=== PATIENT | female | born 1945 | race Caucasian/White ===

== ENCOUNTER → 2018-08-01 12:58 | Outpatient (CLI) | payer MEDICARE, OTHER, SELFPAY ==
[2018-08-03 18:28] LABS: Fecal Immunochemical Test NOT DETECTED
== END ==
PROVIDERS: PCP Physician Assistant; Visit Provider Physician Assistant
DX: Z12.11 Encounter for screening for malignant neoplasm of colon (principal)
CPT/HCPCS: 82274

== ENCOUNTER → 2021-05-17 08:06 | Outpatient (CLI) | payer MEDICARE, OTHER, SELFPAY ==
[2021-05-17 12:54] LABS: COVID19 -Nasal RAPID Negative (Negative)
== END ==
PROVIDERS: Family Provider Physician Assistant; PCP Physician Assistant; Visit Provider Nurse Practitioner Family
DX: Z01.812 Encounter for preprocedural laboratory examination (principal); Z20.822 Contact with and (suspected) exposure to COVID-19
CPT/HCPCS: 87635; C9803

== ENCOUNTER 2021-05-18 09:18 | Day surgery (SDC) | payer MEDICARE, OTHER, SELFPAY ==
[2021-05-18] MEDS: CATARACT EYE COMPOUND (10 DROPS/SYRINGE) 3 DROPS EYE-OP (10:22)
[2021-05-18] MEDS: PROPARACAINE 0.5% OPHTH SOL 2 DROPS EYE-OP (10:23)
[2021-05-18 10:25] VITALS: BP 173/88; PULSE 62; RESP 20; TEMP 36.4; O2SAT 99; BMI 28.3
--- NOTE | 2021-05-18 11:34 | PM.PREOP ---
Pre-operative Note Interval Note History & Physical reviewed/Exam performed by Physician: Yes Changes to H&P: No
--- NOTE | 2021-05-18 11:34 | PM.OP.1 ---
Operative Date/Time/Diagnoses Pre-op diagnosis: Nuclear Cataract Left eye Post-op diagnosis: same Procedure & Clinicians Same procedure as scheduled: Yes Surgeon: Sergo Nascimento Anesthesia Type: MAC +/- and Sedation Operative Notes Procedure in detail: Patient brought to the operating suite. Tetracaine drops placed in the left eye. Patient was prepped and draped in sterile manner. Wire lid speculum was placed in the eye. Betadine drops were placed on the eye. This was irrigated. Lidocaine jelly was placed on the eye. A paracentesis port was created with a side-port blade. 0.1 mL 1% preservative free lidocaine was injected into the anterior chamber. The anterior chamber was deepened with viscoelastic. 2.6 mm keratome was used to create a temporal clear corneal incision. Cystotome and Utrata forceps were used to create continuous tear capsulorrhexis. Balanced salt solution was used to hydro dissect the nucleus. The phacoemulsification handpiece was inserted and the nucleus was removed using the stop and chop technique. The irrigation aspiration handpiece was inserted and the remaining cortex was removed. Anterior chamber was deepened with viscoelastic. An Roche DIB00 intraocular lens with a power of 23.0 was injected into the capsular bag. Irrigation aspiration handpiece was inserted and the remaining viscoelastic was removed. Incision was hydrated with balanced salt solution and found to be leak free with pressure with Weck-Melody sponges. 0.1 mL Vigamox injected anterior chamber. 0.3 mL Kenalog 10 mg was injected subconjunctivally. Lid speculum was removed. The patient left the operating room in excellent condition. Complications: none Post-operative Condition: stable Disposition: same day surgery
[2021-05-18] MEDS: MOXIFLOXACIN INJ 4 MG/0.8 ML VIAL 0.5 MG EYE-OP (11:55)
[2021-05-18] MEDS: LIDOCAINE 2% (GLYDO) 6 ML GEL TOP (11:55)
[2021-05-18] MEDS: HYALURONATE SODIUM 30 MG-10 MG/ML SYRINGES 1 BOX INTRAOCULA (11:55)
[2021-05-18] MEDS: PHENYLEPHRINE/LIDOCAINE VIAL (OR) 0.2 ML EYE-OP (11:55)
[2021-05-18] MEDS: TRIAMCINOLONE 50 MG/5 ML VIAL INJ (11:56)
[2021-05-18] MEDS: BALANCED SALT IRRIG SOLN NO.2 500 ML, EPINEPHrine 1 MG IRR (11:56)
[2021-05-18] MEDS: TETRACAINE 0.5% OPHTH DROPS 4 ML 2 DROPS EYE-OP (11:56)
[2021-05-18 12:34] VITALS: BP 159/80; PULSE 59; RESP 16; TEMP 36.6; O2SAT 96
== END 2021-05-18 12:30 | disposition home or self-care (01) ==
PROVIDERS: Family Provider Physician Assistant; PCP Internal Medicine; Referring Provider Ophthalmology; Visit Provider Ophthalmology
PROC: (CPT 66984; principal; 2021-05-18 11:15)
DX: H25.12 Age-related nuclear cataract, left eye (principal); I10 Essential (primary) hypertension
CPT/HCPCS: 66984; J0171; J2250; J3301

== ENCOUNTER → 2021-05-31 10:42 | Outpatient (CLI) | payer MEDICARE, OTHER, SELFPAY ==
[2021-05-31 14:35] LABS: COVID19 -Nasal RAPID Negative (Negative)
== END ==
PROVIDERS: Family Provider Physician Assistant; PCP Internal Medicine; Referring Provider Nurse Practitioner Family; Visit Provider Nurse Practitioner Family
DX: Z20.822 Contact with and (suspected) exposure to COVID-19 (principal); Z01.812 Encounter for preprocedural laboratory examination
CPT/HCPCS: 87635; C9803

== ENCOUNTER 2021-06-01 10:14 | Day surgery (SDC) | payer MEDICARE, OTHER, SELFPAY ==
[2021-06-01 11:02] VITALS: BP 165/79; PULSE 56; RESP 16; TEMP 36.7; O2SAT 98; BMI 28.1
[2021-06-01] MEDS: CATARACT EYE COMPOUND (10 DROPS/SYRINGE) 3 DROPS EYE-OP (11:08)
[2021-06-01] MEDS: PROPARACAINE 0.5% OPHTH SOL 2 DROPS EYE-OP (11:08)
--- NOTE | 2021-06-01 11:56 | PM.PREOP ---
Pre-operative Note Interval Note History & Physical reviewed/Exam performed by Physician: Yes Changes to H&P: No
--- NOTE | 2021-06-01 11:56 | PM.OP.1 ---
Operative Date/Time/Diagnoses Pre-op diagnosis: Nuclear cataract right eye Procedure & Clinicians Procedure: Cataract Surgery Same procedure as scheduled: Yes Surgeon: Sergo Nascimento Anesthesia Type: MAC +/- and Sedation Operative Notes Procedure in detail: Patient brought to the operating suite. Tetracaine drops placed in the right eye. Patient was prepped and draped in sterile manner. Wire lid speculum was placed in the eye. Betadine drops were placed on the eye. This was irrigated. Lidocaine jelly was placed on the eye. A paracentesis port was created with a side-port blade. 0.1 mL 1% preservative free lidocaine was injected into the anterior chamber. The anterior chamber was deepened with viscoelastic. 2.6 mm keratome was used to create a temporal clear corneal incision. Cystotome and Utrata forceps were used to create continuous tear capsulorrhexis. Balanced salt solution was used to hydro dissect the nucleus. The phacoemulsification handpiece was inserted and the nucleus was removed using the stop and chop technique. The irrigation aspiration handpiece was inserted and the remaining cortex was removed. Anterior chamber was deepened with viscoelastic. An Roche DIB00 intraocular lens with a power of 23.5 was injected into the capsular bag. Irrigation aspiration handpiece was inserted and the remaining viscoelastic was removed. Incision was hydrated with balanced salt solution and found to be leak free with pressure with Weck-Melody sponges. 0.1 mL Vigamox injected anterior chamber. 0.3 mL Kenalog 10 mg was injected subconjunctivally. Lid speculum was removed. The patient left the operating room in excellent condition. Complications: none Post-operative Condition: stable Disposition: same day surgery
[2021-06-01] MEDS: LIDOCAINE 2% (GLYDO) 6 ML GEL TOP (12:14)
[2021-06-01] MEDS: HYALURONATE SODIUM 30 MG-10 MG/ML SYRINGES 1 BOX INTRAOCULA (12:14)
[2021-06-01] MEDS: MOXIFLOXACIN INJ 4 MG/0.8 ML VIAL 0.5 MG EYE-OP (12:14)
[2021-06-01] MEDS: TETRACAINE 0.5% OPHTH DROPS 4 ML 2 DROPS EYE-OP (12:15)
[2021-06-01] MEDS: PHENYLEPHRINE/LIDOCAINE VIAL (OR) 0.2 ML EYE-OP (12:15)
[2021-06-01] MEDS: TRIAMCINOLONE 50 MG/5 ML VIAL INJ (12:15)
[2021-06-01] MEDS: BALANCED SALT IRRIG SOLN NO.2 500 ML, EPINEPHrine 1 MG IRR (12:16)
[2021-06-01 12:36] VITALS: BP 159/83; PULSE 70; RESP 16; TEMP 36.1; O2SAT 94
== END 2021-06-01 12:39 | disposition home or self-care (01) ==
PROVIDERS: Family Provider Physician Assistant; PCP Internal Medicine; Referring Provider Ophthalmology; Visit Provider Ophthalmology
PROC: (CPT 66984; principal; 2021-06-01 12:15)
DX: H25.11 Age-related nuclear cataract, right eye (principal); I10 Essential (primary) hypertension
CPT/HCPCS: 66984; J0171; J2250; J3301

== ENCOUNTER → 2022-01-07 15:30 | Outpatient (CLI) | payer MEDICARE, OTHER, SELFPAY ==
--- NOTE | 2022-01-07 15:35 | DI.RAD.S_ITS ---
PROCEDURE: XR CHEST 2V INDICATIONS: Cough 2 mo. SOB TECHNIQUE: 2 views of the chest were acquired. COMPARISON: [facility], , CHEST 2 VIEW, 10/20/2017, 19:31. FINDINGS: Surgical changes and devices: None. Lungs and pleura: New diffuse interstitial prominence and scattered patchy airspace opacities in the bilateral hemithoraces which appear more pronounced on the right. No substantial pleural effusion noted. No pneumothorax. Mediastinum: Mediastinal contours are normal. Heart size is normal. Bones and chest wall: No suspicious bony abnormalities. Soft tissues appear unremarkable. IMPRESSION: Diffuse interstitial prominence and scattered patchy bilateral airspace opacities more pronounced on the right. Findings may represent multifocal pneumonia; however, an infectious process may have a similar appearance. Given duration of symptoms, consider further evaluation with chest CT. Dictated by: Bernardino Leahy M.D. on 01/07/2022 at 17:14 Approved by: Bernardino Leahy M.D. on 01/07/2022 at 17:16
== END ==
PROVIDERS: Family Provider Physician Assistant; PCP Student in an Organized Health Care Education/Training Program; Referring Provider Student in an Organized Health Care Education/Training Program; Visit Provider Student in an Organized Health Care Education/Training Program
DX: R05.9 Cough, unspecified (principal); R06.02 Shortness of breath
CPT/HCPCS: 71046

== ENCOUNTER 2022-01-19 14:38 | Inpatient (IN) | payer MEDICARE, OTHER, SELFPAY ==
[2022-01-19] VITALS (18 sets, daily range): BP systolic 165–187; BP diastolic 86–111; PULSE 75–96; RESP 20–48; TEMP 36.9–37.1; O2SAT 91–98; BMI 29.2
--- NOTE | 2022-01-19 14:51 | DI.RAD.S_ITS ---
PROCEDURE: XR CHEST 1V INDICATIONS: recent pneumonia, worsening symptoms TECHNIQUE: One view of the chest was acquired. COMPARISON: [facility], , XR CHEST 2V, 01/07/2022, 15:28. [facility], , CHEST 2 VIEW, 10/20/2017, 19:31. FINDINGS: Surgical changes and devices: None. Lungs and pleura: Bilateral patchy airspace opacity. Overall this is similar to the prior exam. No pleural effusions or pneumothorax. Mediastinum: Mediastinal contours appear unchanged. Heart size is within normal limits. Bones and chest wall: No suspicious bony lesions. Overlying soft tissues appear unremarkable. IMPRESSION: Bilateral patchy airspace opacity. Overall this is similar to the prior exam. Favor multifocal pneumonia. Recommend follow-up to resolution. CT of the chest may be helpful for further evaluation. Dictated by: Pipe Zapata M.D. on 01/19/2022 at 15:41 Approved by: Pipe Zapata M.D. on 01/19/2022 at 15:43
--- NOTE | 2022-01-19 15:08 | PC.NURSE ---
Pt reports recent diagnosis of pneumonia and feeling SOB. 93% on RA, RR 32. Pt reports sleeping 23/7. She states eating 2 crackers and 1 glass of water daily.
--- NOTE | 2022-01-19 15:32 | DI.RAD.S_ITS ---
PROCEDURE: XR CHEST 1V INDICATIONS: additional view, pneumonia TECHNIQUE: One view of the chest was acquired. COMPARISON: [facility], CR, XR CHEST 1V, 01/19/2022, 14:56. FINDINGS: Motion is present limiting evaluation. Surgical changes and devices: None. Lungs and pleura: Ill-defined areas of retrocardiac opacity are noted. Mediastinum: Mediastinal contours appear normal. Heart size is normal. Bones and chest wall: No suspicious bony lesions. Overlying soft tissues appear unremarkable. IMPRESSION: Ill-defined retrocardiac opacity likely corresponding to areas of bibasilar coarsening identified on chest x-ray of 01/19/2022 at 2:56 p.m. Dictated by: Nataly Stokes M.D. on 01/19/2022 at 16:04 Approved by: Nataly Stokes M.D. on 01/19/2022 at 16:05
[2022-01-19 15:44] LABS: Add Manual Diff / Slide Review NO; Basophils Absolute Auto 100 /uL (0-100); Basophils Percent Auto 0.5 % (0-2); Eosinophils Absolute Auto 300 /uL (0-450); Eosinophils Percent Auto 2.8 % (2-4); Hematocrit 34.8 % (36-46); Hemoglobin 12.1 g/dL (12.0-16.0); Lymphocytes Absolute Auto 1400 /uL (1100-4500); Mean Corpuscular HGB Conc 34.8 % (30-36); Mean Corpuscular Hemoglobin 32.5 PG (26-34); Mean Corpuscular Volume 93.5 fL (80-100); Monocytes Absolute Auto 800 /uL (0-900); Monocytes Percent Auto 6.6 % (3-14); Neutrophils Absolute Auto 9200 /uL (1500-7000); Neutrophils Percent Auto 78.1 % (50-75); Platelet Count 448 X10^3/uL (150-400); Red Blood Cell Count 3.72 X10^6/uL (4.0-5.2); Red Cell Distribution Width 12.4 % (11.6-14.8); White Blood Cell Count 11.8 X10^3/uL (4.5-11.0)
[2022-01-19 15:51] LABS: Alanine Aminotransferase 25 IU/L (<35); Albumin 3.7 g/dL (3.5-5.0); Albumin Globulin Ratio 0.9 (1.0-2.8); Alkaline Phosphatase 105 U/L (38-126); Aspartate Aminotransferase 28 IU/L (14-36); BUN Creatinine Ratio 16.3 (6-22); Bilirubin Total 0.6 mg/dL (0.2-1.3); Blood Urea Nitrogen 13 mg/dL (7-17); Calcium 9.1 mg/dL (8.4-10.2); Carbon Dioxide 30 mmol/L (22-32); Chloride 92 mmol/L (98-107); Estimated Glomerular Filt Rate > 60 mL/min (>60); Globulin 4.2 g/dL (1.7-4.1); Glucose 102 mg/dL (80-110); HEMOLYSIS < 15 (0-50); Magnesium 1.9 mg/dL (1.6-2.3); Potassium 3.3 mmol/L (3.4-5.1); Sodium 134 mmol/L (137-145); Total Protein 7.9 g/dL (6.3-8.2)
[2022-01-19 15:59] LABS: NT-proBNP (BNP-Adult 18+) 174 pg/mL (<450)
[2022-01-19] MEDS: ALBUTEROL/IPRATROPIUM 3 ML AMPUL INH (16:03)
[2022-01-19 16:08] LABS: COVID19 -Nasal RAPID Negative (Negative)
[2022-01-19 16:09] LABS: Creatine Kinase 48 U/L (30-135)
[2022-01-19 16:23] LABS: Troponin I < 0.012 ng/mL (0.01-0.034)
[2022-01-19] MEDS: DOXYCYCLINE HYCLATE 100 MG TABLET PO (17:33)
[2022-01-19] MEDS: AMOXICILLIN/CLAV 875/125 MG 1 TAB PO (17:33)
--- NOTE | 2022-01-19 17:47 | PC.NURSE ---
Per ARTHUR Li ambulation trial was performed. Pt 3 saturation went from 94% on 1L of oxygen to 88% on room air while walking within the room. Patient reported being a little bit dizzy. She was assisted back to bed. Oxygen placed back on via nasal cannula at 1.5 L. Current saturation is 93%. Call light within reach. Informed to call for any needs. Notified ARTHUR Li of ambulation trial results.
[2022-01-19] MEDS: cefTRIAXone 1,000 MG in SODIUM CHLORIDE 0.9% 100 ML 200 MG IV (18:32)
--- NOTE | 2022-01-19 18:55 | PC.NURSE ---
Pt given snack and water with ok from ARTHUR Abbott
[2022-01-19] MEDS: AZITHROMYCIN 500 MG in DEXTROSE 5% IN WATER 250 ML 250 MG IV (20:08)
--- NOTE | 2022-01-19 20:08 | ED_ITS ---
HPI - SOB/Dyspnea <Jen Abbott PA-C - Last Filed: 01/19/22 20:33> General Chief Complaint: Upper Respiratory Symptoms Stated Complaint: pneumonia 2 weeks ago, still feeling bad Time Seen by Provider: 01/19/22 14:44 Source: patient Mode of arrival: Ambulatory Limitations: no limitations History of Present Illness HPI Narrative: Patient is a 76-year-old female presenting with ongoing pneumonia symptoms for the last 3 weeks. She was originally seen by her primary provider and just completed a 5 day course of doxycycline. She reports persistent shortness of breath, shallow breathing, cough, dizziness with ambulation, fatigue. She denies any fever, chest pain, pain with inspiration, confusion, nasal drainage, nasal congestion, nausea, vomiting, or dysuria. She denies any past medical history of asthma. She reports that she has had pneumonia many times in the past and does well on amoxicillin. She has had very little appetite and has only eaten 1 cracker and drank half a glass of water today. She does not use supplemental oxygen at home. Related Data Home Medications Medication Instructions Recorded Confirmed aspirin 81 mg tablet,delayed 81 mg PO QDAY #0 10/31/17 01/19/22 release Carditone 200 mg PO DAILY 01/20/22 01/20/22 Previous Rx's Medication Instructions Recorded varicella-zoster glycoE [id number] 50 mcg IM ONCE #1 each 02/05/19 adj(PF) 50 mcg/0.5 mL IM susp, kit (Shingrix (PF)) doxepin 10 mg capsule 10 mg PO HSP PRN #30 cap 09/23/19 Allergies Allergy/AdvReac Type Severity Reaction Status Date / Time shellfish derived Allergy Severe I SWELL Verified 01/19/22 15:14 UP ibuprofen [From MOTRIN] AdvReac Severe MAKED ME Verified 08/11/21 13:23 GO BLIND AND INCREASED MY BLOOD PRESSURE pseudoephedrine AdvReac Severe REALLY Verified 08/11/21 13:23 [From SUDAFED] DRIES ME OUT THAT I CAN'T EVEN PEE Review of Systems <Jen Abbott PA-C - Last Filed: 01/19/22 20:33> Review of Systems ROS Unobtainable: All systems reviewed & are unremarkable except as noted in HPI and below Constitutional Constitutional: Reports as per HPI, Denies chills, Denies difficulty sleeping, Reports fatigue, Denies fever(s), Denies headache(s), Reports poor appetite and Reports weakness Eyes Eyes: Denies change in vision, Denies irritation and Denies loss of vision ENT Ears, Nose, Mouth, and Throat: Reports dizziness, Denies headache(s), Denies nasal congestion, Denies nasal discharge and Denies sore throat Cardiovascular Cardiovascular: Denies chest pain, Denies irregular heart rhythm, Denies lightheadedness, Denies palpitations, Denies dyspnea, Denies dyspnea on exertion and Denies orthopnea Respiratory Respiratory: Denies cough, Denies dyspnea and Denies dyspnea on exertion Gastrointestinal Gastrointestinal: Denies abdominal pain, Denies change in bowel habits, Denies diarrhea, Denies nausea and Denies vomiting Genitourinary Genitourinary: Denies dysuria, Denies flank pain, Denies urinary incontinence and Denies urinary urgency Musculoskeletal Musculoskeletal: Denies muscle weakness, Denies numbness and Denies tingling Integumentary/Breasts Skin/Breast: Denies pruritus, Denies erythema, Denies rash and Denies wounds Neurologic Neurologic: Denies behavioral changes, Denies confusion, Reports dizziness, Denies headache(s), Denies loss of vision, Denies numbness, Denies tingling and Reports weakness Psychiatric Psychiatric: Denies abnormal sleep pattern, Denies behavioral changes, Reports change in appetite and Denies confusion Endocrine Endocrine: Reports fatigue, Denies flushing and Denies palpitations Hematologic/Lymphatic Hematologic/Lymphatic: Reports system reviewed and no additional complaints, except as documented Allergic/Immunologic Allergic/Immunologic: Reports system reviewed and no additional complaints, except as documented Patient History <Jen Abbott PA-C - Last Filed: 01/19/22 20:33> Medical History Hypertension Surgical History History of carpal tunnel repair Social History household members: none Smoking Status: Never smoker second hand exposure: No (I was exposed with I was younger, but not since I was 36.) alcohol intake: never substance use type: does not use Smoking Status: Never smoker Substance Use Type: does not use Exam <Jen Abbott PA-C - Last Filed: 01/19/22 20:33> Narrative Exam Narrative: GENERAL: 76 year old patient appears stated age. Well-developed patient, in mild distress. HEAD: Atraumatic. Normocephalic. EYES: Pupils equal round and reactive. Extraocular motions intact. No scleral icterus. No injection or drainage. ENT: Nose without bleeding, purulent drainage. Throat without erythema, tonsi llar hypertrophy or exudate. Airway patent. NECK: Trachea midline. Non tender CARDIOVASCULAR: Regular rate and rhythm without murmurs, gallops, or rubs. RESPIRATORY: Shallow breathing, tachypnea, bilateral crackles present GASTROINTESTINAL: Abdomen soft, non-tender, nondistended. EXTREMITIES: No edema or joint tenderness. BACK: Nontender without deformity or crepitance. No flank tenderness. NEURO: AOx3. SKIN: No rash or erythema of visible areas Initial Vital Signs Initial Vital Signs: Vital Signs Temperature 98.4 F 01/19/22 14:46 Pulse Rate 89 01/19/22 14:46 Respiratory Rate 24 01/19/22 14:46 Blood Pressure 173/86 H 01/19/22 14:46 Pulse Oximetry 94 01/19/22 14:46 <César Hayward MD - Last Filed: 01/20/22 03:16> Initial Vital Signs Initial Vital Signs: Vital Signs Temperature 98.4 F 01/19/22 14:46 Pulse Rate 89 01/19/22 14:46 Respiratory Rate 24 01/19/22 14:46 Blood Pressure 173/86 H 01/19/22 14:46 Pulse Oximetry 94 01/19/22 14:46 Scores <Jen Abbott PA-C - Last Filed: 01/19/22 20:33> CURB-65 Confusion: No BUN >19mg/dL (>7mmol/L): No Respiratory rate greater or equal to 30: Yes SBP <90mmHg or DBP less or equal to 60mmHg: No Age 65 or Older: Yes CURB-65 Total: 2 Score 0-1 Outpatient care, Score 2 Inpt vs. Obs, Score 3 or over Inpt admit with ICU for score of 4-5 <César Hayward MD - Last Filed: 01/20/22 03:16> CURB-65 CURB-65 Total: 2 Course <Jen Abbott PA-C - Last Filed: 01/19/22 20:33> Orders Ordered: Acetaminophen (Acetaminophen 325 Mg Tablet) 650 mg PO Q6HR PRN PRN Reason: pain, fever Albuterol (Albuterol 2.5 Mg/3 Ml Neb (Adult)) 2.5 mg INH [id number] PRN PRN Reason: Shortness Of Breath Enoxaparin Sodium (Enoxaparin 40 Mg/0.4 Ml Syringe) 40 mg SUBCUT DAILY RYANNE Ceftriaxone Sodium 1,000 mg/ (Sodium Chloride) 100 mls @ 200 mls/hr IV Q24H RYANNE Azithromycin 500 mg/ Dextrose 250 mls @ 250 mls/hr IV Q24H RYANNE Naloxone HCl (Naloxone 0.4 Mg/Ml Vial) 0.2 mg IV Q2MIN PRN PRN Reason: Opiate Reversal Ondansetron HCl (Ondansetron 4 Mg/2 Ml Inj) 4 mg IV Q8HR PRN PRN Reason: Nausea And Vomiting Discontinued Medications Albuterol (Albuterol 2.5 Mg/3 Ml Neb (Adult)) 2.5 mg INH NOW ONE Stop: 01/19/22 16:53 Last Admin: 01/19/22 17:58 Dose: Not Given Documented by: ERICA Albuterol/Ipratropium (Albuterol/Ipratropium 3 Ml Ampul) 3 ml INH NOW ONE Stop: 01/19/22 15:33 Last Admin: 01/19/22 16:03 Dose: 3 ml Documented by: KEITH Amoxicillin/Clavulanate Potassium (Amoxicillin/Clav 875/125 Mg) 1 tab PO NOW ONE Stop: 01/19/22 16:57 Last Admin: 01/19/22 17:33 Dose: 1 tab Documented by: ANTONIO Doxycycline Hyclate (Doxycycline Hyclate 100 Mg Tablet) 100 mg PO NOW ONE Stop: 01/19/22 16:57 Last Admin: 01/19/22 17:33 Dose: 100 mg Documented by: ANTONIO Ceftriaxone Sodium 1,000 mg/ (Sodium Chloride) 100 mls @ 200 mls/hr IV NOW ONE Stop: 01/19/22 18:18 Last Infusion: 01/19/22 20:16 Dose: 0 mls/hr Documented by: Admin: 01/19/22 18:32 Dose: 200 mls/hr Documented by: TAD Azithromycin 500 mg/ Dextrose 250 mls @ 250 mls/hr IV NOW ONE Stop: 01/19/22 18:18 Last Infusion: 01/19/22 20:51 Dose: 250 mls/hr Documented by: Infusion: 01/19/22 20:43 Dose: 250 mls/hr Documented by: Infusion: 01/19/22 20:21 Dose: 0 mls/hr Documented by: Admin: 01/19/22 20:08 Dose: 250 mls/hr Documented by: ANTONIO Prednisone (Prednisone 20 Mg Tablet) 50 mg PO NOW ONE Stop: 01/19/22 16:54 Last Admin: 01/19/22 17:59 Dose: Not Given Documented by: ERICA Vital Signs Vital signs: Vital Signs - 8 hr 01/19/22 14:46 01/19/22 15:00 01/19/22 15:14 Temperature 98.4 F Pulse Rate 86 85 81 Respiratory Rate 24 Blood Pressure 173/86 H 171/90 H Pulse Oximetry 93 93 94 01/19/22 15:15 01/19/22 15:26 01/19/22 15:30 Temperature Pulse Rate 82 Respiratory Rate 22 33 H Blood Pressure Pulse Oximetry 91 94 94 01/19/22 16:00 01/19/22 16:30 01/19/22 17:00 Temperature Pulse Rate 75 85 85 Respiratory Rate 31 H 32 H 26 H Blood Pressure Pulse Oximetry 91 94 94 01/19/22 17:30 01/19/22 17:33 01/19/22 18:00 Temperature Pulse Rate 88 90 94 H Respiratory Rate 27 H 27 H 48 H Blood Pressure 174/94 H Pulse Oximetry 95 94 93 01/19/22 18:26 Temperature Pulse Rate 85 Respiratory Rate 28 H Blood Pressure 187/111 H Pulse Oximetry 97 <César Hayward MD - Last Filed: 01/20/22 03:16> Orders Ordered: Acetaminophen (Acetaminophen 325 Mg Tablet) 650 mg PO Q6HR PRN PRN Reason: pain, fever Albuterol (Albuterol 2.5 Mg/3 Ml Neb (Adult)) 2.[id number] PRN PRN Reason: Shortness Of Breath Enoxaparin Sodium (Enoxaparin 40 Mg/0.4 Ml Syringe) 40 mg SUBCUT DAILY [facility] Ceftriaxone Sodium 1,000 mg/ (Sodium Chloride) 100 mls @ 200 mls/hr IV Q24H RYANNE Azithromycin 500 mg/ Dextrose 250 mls @ 250 mls/hr IV Q24H RYANNE Naloxone HCl (Naloxone 0.4 Mg/Ml Vial) 0.2 mg IV Q2MIN PRN PRN Reason: Opiate Reversal Ondansetron HCl (Ondansetron 4 Mg/2 Ml Inj) 4 mg IV Q8HR PRN PRN Reason: Nausea And Vomiting Discontinued Medications Albuterol (Albuterol 2.5 Mg/3 Ml Neb (Adult)) 2.5 mg INH NOW ONE Stop: 01/19/22 16:53 Last Admin: 01/19/22 17:58 Dose: Not Given Documented by: ERICA Albuterol/Ipratropium (Albuterol/Ipratropium 3 Ml Ampul) 3 ml INH NOW ONE Stop: 01/19/22 15:33 Last Admin: 01/19/22 16:03 Dose: 3 ml Documented by: KEITH Amoxicillin/Clavulanate Potassium (Amoxicillin/Clav 875/125 Mg) 1 tab PO NOW ONE Stop: 01/19/22 16:57 Last Admin: 01/19/22 17:33 Dose: 1 tab Documented by: ANTONIO Doxycycline Hyclate (Doxycycline Hyclate 100 Mg Tablet) 100 mg PO NOW ONE Stop: 01/19/22 16:57 Last Admin: 01/19/22 17:33 Dose: 100 mg Documented by: ANTONIO Ceftriaxone Sodium 1,000 mg/ (Sodium Chloride) 100 mls @ 200 mls/hr IV NOW ONE Stop: 01/19/22 18:18 Last Infusion: 01/19/22 20:16 Dose: 0 mls/hr Documented by: Admin: 01/19/22 18:32 Dose: 200 mls/hr Documented by: TAD Azithromycin 500 mg/ Dextrose 250 mls @ 250 mls/hr IV NOW ONE Stop: 01/19/22 18:18 Last Infusion: 01/19/22 20:51 Dose: 250 mls/hr Documented by: Infusion: 01/19/22 20:43 Dose: 250 mls/hr Documented by: Infusion: 01/19/22 20:21 Dose: 0 mls/hr Documented by: Admin: 01/19/22 20:08 Dose: 250 mls/hr Documented by: ANTONIO Prednisone (Prednisone 20 Mg Tablet) 50 mg PO NOW ONE Stop: 01/19/22 16:54 Last Admin: 01/19/22 17:59 Dose: Not Given Documented by: ERICA Vital Signs Vital signs: Vital Signs - 8 hr 01/19/22 14:46 01/19/22 15:00 01/19/22 15:14 Temperature 98.4 F Pulse Rate 86 85 81 Respiratory Rate 24 Blood Pressure 173/86 H 171/90 H Pulse Oximetry 93 93 94 01/19/22 15:15 01/19/22 15:26 01/19/22 15:30 Temperature Pulse Rate 82 Respiratory Rate 22 33 H Blood Pressure Pulse Oximetry 91 94 94 01/19/22 16:00 01/19/22 16:30 01/19/22 17:00 Temperature Pulse Rate 75 85 85 Respiratory Rate 31 H 32 H 26 H Blood Pressure Pulse Oximetry 91 94 94 01/19/22 17:30 01/19/22 17:33 01/19/22 18:00 Temperature Pulse Rate 88 90 94 H Respiratory Rate 27 H 27 H 48 H Blood Pressure 174/94 H Pulse Oximetry 95 94 93 01/19/22 18:26 Temperature Pulse Rate 85 Respiratory Rate 28 H Blood Pressure 187/111 H Pulse Oximetry 97 MDM - SOB/Dyspnea <Jen Abbott PA-C - Last Filed: 01/19/22 20:33> Lab Data Result diagrams: 01/19/22 15:10 01/19/22 15:10 Labs: Lab Results 01/19/22 01/19/22 01/19/22 Range/Units 14:42 15:10 15:10 WBC 11.8 H (4.5-11.0) X10^3/uL RBC 3.72 L (4.0-5.2) X10^6/uL Hgb 12.1 (12.0-16.0) g/dL Hct 34.8 L (36-46) % MCV 93.5 (80-100) fL MCH 32.5 (26-34) PG MCHC 34.8 (30-36) % RDW 12.4 (11.6-14.8) % Plt Count 448 H (150-400) X10^3/uL Neut % (Auto) 78.1 H (50-75) % Lymph % (Auto) 12.0 L (25-40) % [place] % (Auto) 6.6 (3-14) % Eos % (Auto) 2.8 (2-4) % Baso % (Auto) 0.5 (0-2) % Neut # (Auto) 9200 H (0738-7741) /uL Lymph # (Auto) 1400 (7280-9026) /uL [place] # (Auto) 800 (0-900) /uL Eos # (Auto) 300 (0-450) /uL Baso # (Auto) 100 (0-100) /uL Sodium 134 L (137-145) mmol/L Potassium 3.3 L (3.4-5.1) mmol/L Chloride 92 L (98-107) mmol/L Carbon Dioxide 30 (22-32) mmol/L BUN 13 (7-17) mg/dL Creatinine 0.80 (0.52-1.04) mg/dL Estimated GFR > 60 (>60) mL/min BUN/Creatinine Ratio 16.3 (6-22) Glucose 102 (80-110) mg/dL Calcium 9.1 (8.4-10.2) mg/dL Magnesium 1.9 (1.6-2.3) mg/dL Total Bilirubin 0.6 (0.2-1.3) mg/dL AST 28 (14-36) IU/L ALT 25 (<35) IU/L Alkaline Phosphatase 105 (38-126) U/L Total Creatine Kinase (30-135) U/L CK-MB (CK-2) CK-MB (CK-2) Rel Index Troponin I (0.01-0.034) ng/mL NT-Pro-B Natriuret Pep 174 (<450) pg/mL Total Protein 7.9 (6.3-8.2) g/dL Albumin 3.7 (3.5-5.0) g/dL Globulin 4.2 H (1.7-4.1) g/dL Albumin/Globulin Ratio 0.9 L (1.0-2.8) Procalcitonin (<0.5) ng/mL SARS-CoV-2 (PCR) Negative (Negative) 01/19/22 01/19/22 Range/Units 15:10 15:10 WBC (4.5-11.0) X10^3/uL RBC (4.0-5.2) X10^6/uL Hgb (12.0-16.0) g/dL Hct (36-46) % MCV (80-100) fL MCH (26-34) PG MCHC (30-36) % RDW (11.6-14.8) % Plt Count (150-400) X10^3/uL Neut % (Auto) (50-75) % Lymph % (Auto) (25-40) % [place] % (Auto) (3-14) % Eos % (Auto) (2-4) % Baso % (Auto) (0-2) % Neut # (Auto) (4188-0541) /uL Lymph # (Auto) (0507-1932) /uL [place] # (Auto) (0-900) /uL Eos # (Auto) (0-450) /uL Baso # (Auto) (0-100) /uL Sodium (137-145) mmol/L Potassium (3.4-5.1) mmol/L Chloride (98-107) mmol/L Carbon Dioxide (22-32) mmol/L BUN (7-17) mg/dL Creatinine (0.52-1.04) mg/dL Estimated GFR (>60) mL/min BUN/Creatinine Ratio (6-22) Glucose (80-110) mg/dL Calcium (8.4-10.2) mg/dL Magnesium (1.6-2.3) mg/dL Total Bilirubin (0.2-1.3) mg/dL AST (14-36) IU/L ALT (<35) IU/L Alkaline Phosphatase (38-126) U/L Total Creatine Kinase 48 (30-135) U/L CK-MB (CK-2) TNP CK-MB (CK-2) Rel Index TNP Troponin I < 0.012 (0.01-0.034) ng/mL NT-Pro-B Natriuret Pep (<450) pg/mL Total Protein (6.3-8.2) g/dL Albumin (3.5-5.0) g/dL Globulin (1.7-4.1) g/dL Albumin/Globulin Ratio (1.0-2.8) Procalcitonin 0.06 (<0.5) ng/mL SARS-CoV-2 (PCR) (Negative) Imaging Data Chest x-ray: Radiologist's Impression: [address] [id number] XRay Report Signed Patient: Bere Richards MR#: [id number] : 1945 Acct:[id number] Age/Sex: 76 / F Date of Service: 01/19/22 Loc: ED Accession Number: [id number] ?? Procedure: XR chest 1V Ordering Provider: Jen Abbott P.A-C PROCEDURE:? XR CHEST 1V ? INDICATIONS:? recent pneumonia, worsening symptoms ? TECHNIQUE:? One view of the chest was acquired.? ? COMPARISON:? [facility], , XR CHEST 2V, 01/07/2022, 15:28.? [facility], CR, CHEST 2 VIEW, 10/20/2017, 19:31. ? FINDINGS:? ? Surgical changes and devices:? None.? ? Lungs and pleura:? Bilateral patchy airspace opacity.? Overall this is similar to the prior exam.? No pleural effusions or pneumothorax.? ? Mediastinum:? Mediastinal contours appear unchanged.? Heart size is within normal limits. ? ? Bones and chest wall:? No suspicious bony lesions.? Overlying soft tissues appear unremarkable.? ? IMPRESSION:? Bilateral patchy airspace opacity.? Overall this is similar to the prior exam.? Favor multifocal pneumonia. ? Recommend follow-up to resolution.? CT of the chest may be helpful for further evaluation. ? ? Dictated by: Pipe Zapata M.D. on 01/19/2022 at 15:41 ? ? Approved by: Pipe Zapata M.D. on 01/19/2022 at 15:43 ? Lateral: Radiologist's Impression: [address] [address] XRay Report Signed Patient: Bere Richards MR#: [id number] : 1945 Acct:[id number] Age/Sex: 76 / F Date of Service: 01/19/22 Loc: ED Accession Number: [id number] ?? Procedure: XR chest 1V Ordering Provider: Jen Abbott P.A-C PROCEDURE:? XR CHEST 1V ? INDICATIONS:? additional view, pneumonia ? TECHNIQUE:? One view of the chest was acquired.? ? COMPARISON:? [facility], CR, XR CHEST 1V, 01/19/2022, 14:56. ? FINDINGS:? Motion is present limiting evaluation. ? Surgical changes and devices:? None.? ? Lungs and pleura:? Ill-defined areas of retrocardiac opacity are noted. ? Mediastinum:? Mediastinal contours appear normal.? Heart size is normal.? ? Bones and chest wall:? No suspicious bony lesions.? Overlying soft tissues appear unremarkable.? ? IMPRESSION:? Ill-defined retrocardiac opacity likely corresponding to areas of bibasilar coarsening identified on chest x-ray of 01/19/2022 at 2:56 p.m. ? ? Dictated by: Nataly Stokes M.D. on 01/19/2022 at 16:04 ? ? Approved by: Nataly Stokes M.D. on 01/19/2022 at 16:05 ? MDM Narrative Medical decision making narrative: Patient is a 76-year-old female presenting with ongoing pneumonia symptoms for the last 3 weeks. Upon arrival her O2 saturation was 92 and she was was put on 1 L nasal cannula for goal of O2 sats greater than 95. Her chest x-ray showed bilateral patchy infiltrates. Patient is tolerating PO, is in no immediate distress, and is not wheezing. She was given 1 nebulizer with no improvement of symptoms, and respiratory did not recommend a repeat neb or administration of steroids as he felt they would not help. She was COVID negative. We started her on oral Augmentin and doxycycline. An ambulation trial was attempted and patient failed, O2 satting at 88 with reported dizziness. The hospitalist was consulted and he accepts this patient. We also started her on IV Rocephin and azithromycin as directed by hospitalist. <César Hayward MD - Last Filed: 01/20/22 03:16> Lab Data Labs: Lab Results 01/19/22 01/19/22 01/19/22 Range/Units 14:42 15:10 15:10 WBC 11.8 H (4.5-11.0) X10^3/uL RBC 3.72 L (4.0-5.2) X10^6/uL Hgb 12.1 (12.0-16.0) g/dL Hct 34.8 L (36-46) % MCV 93.5 (80-100) fL MCH 32.5 (26-34) PG MCHC 34.8 (30-36) % RDW 12.4 (11.6-14.8) % Plt Count 448 H (150-400) X10^3/uL Neut % (Auto) 78.1 H (50-75) % Lymph % (Auto) 12.0 L (25-40) % [place] % (Auto) 6.6 (3-14) % Eos % (Auto) 2.8 (2-4) % Baso % (Auto) 0.5 (0-2) % Neut # (Auto) 9200 H (8543-3085) /uL Lymph # (Auto) 1400 (9627-3020) /uL [place] # (Auto) 800 (0-900) /uL Eos # (Auto) 300 (0-450) /uL Baso # (Auto) 100 (0-100) /uL Sodium 134 L (137-145) mmol/L Potassium 3.3 L (3.4-5.1) mmol/L Chloride 92 L (98-107) mmol/L Carbon Dioxide 30 (22-32) mmol/L BUN 13 (7-17) mg/dL Creatinine 0.80 (0.52-1.04) mg/dL Estimated GFR > 60 (>60) mL/min BUN/Creatinine Ratio 16.3 (6-22) Glucose 102 (80-110) mg/dL Calcium 9.1 (8.4-10.2) mg/dL Magnesium 1.9 (1.6-2.3) mg/dL Total Bilirubin 0.6 (0.2-1.3) mg/dL AST 28 (14-36) IU/L ALT 25 (<35) IU/L Alkaline Phosphatase 105 (38-126) U/L Total Creatine Kinase (30-135) U/L CK-MB (CK-2) CK-MB (CK-2) Rel Index Troponin I (0.01-0.034) ng/mL NT-Pro-B Natriuret Pep 174 (<450) pg/mL Total Protein 7.9 (6.3-8.2) g/dL Albumin 3.7 (3.5-5.0) g/dL Globulin 4.2 H (1.7-4.1) g/dL Albumin/Globulin Ratio 0.9 L (1.0-2.8) Procalcitonin (<0.5) ng/mL SARS-CoV-2 (PCR) Negative (Negative) 01/19/22 01/19/22 Range/Units 15:10 15:10 WBC (4.5-11.0) X10^3/uL RBC (4.0-5.2) X10^6/uL Hgb (12.0-16.0) g/dL Hct (36-46) % MCV (80-100) fL MCH (26-34) PG MCHC (30-36) % RDW (11.6-14.8) % Plt Count (150-400) X10^3/uL Neut % (Auto) (50-75) % Lymph % (Auto) (25-40) % [place] % (Auto) (3-14) % Eos % (Auto) (2-4) % Baso % (Auto) (0-2) % Neut # (Auto) (8887-8766) /uL Lymph # (Auto) (8632-2048) /uL [place] # (Auto) (0-900) /uL Eos # (Auto) (0-450) /uL Baso # (Auto) (0-100) /uL Sodium (137-145) mmol/L Potassium (3.4-5.1) mmol/L Chloride (98-107) mmol/L Carbon Dioxide (22-32) mmol/L BUN (7-17) mg/dL Creatinine (0.52-1.04) mg/dL Estimated GFR (>60) mL/min BUN/Creatinine Ratio (6-22) Glucose (80-110) mg/dL Calcium (8.4-10.2) mg/dL Magnesium (1.6-2.3) mg/dL Total Bilirubin (0.2-1.3) mg/dL AST (14-36) IU/L ALT (<35) IU/L Alkaline Phosphatase (38-126) U/L Total Creatine Kinase 48 (30-135) U/L CK-MB (CK-2) TNP CK-MB (CK-2) Rel Index TNP Troponin I < 0.012 (0.01-0.034) ng/mL NT-Pro-B Natriuret Pep (<450) pg/mL Total Protein (6.3-8.2) g/dL Albumin (3.5-5.0) g/dL Globulin (1.7-4.1) g/dL Albumin/Globulin Ratio (1.0-2.8) Procalcitonin 0.06 (<0.5) ng/mL SARS-CoV-2 (PCR) (Negative) Discharge Plan Departure Patient Disposition: Admitted As Inpatient Clinical Impression: Oxygen desaturation Pneumonia Qualifiers: Pneumonia type: due to unspecified organism Laterality: bilateral Lung location: lower lobe of lung Qualified Code(s): J18.9 - Pneumonia, unspecified organism Admit Date/Time: 01/19/22 18:26 Admit Provider: Terese Noble
[2022-01-20] VITALS (11 sets, daily range): BP systolic 125–169; BP diastolic 62–109; PULSE 64–91; RESP 16–19; TEMP 36.3–37.4; O2SAT 91–98
--- NOTE | 2022-01-20 00:12 | DI.CT.S_ITS ---
PROCEDURE: CT CHEST WO CON INDICATIONS: cough/sob x 3 months, worse despite abx TECHNIQUE: Noncontrast 5 mm thick sections acquired from the pulmonary apices to the posterior costophrenic angles. 1 mm lung window, 5 mm thick coronal and sagittal and 7 mm axial MIP reformats were then acquired. For radiation dose reduction, the following was used: automated exposure control, adjustment of mA and/or kV according to patient size. COMPARISON: [facility], CR, XR CHEST 1V, 01/19/2022, 14:56. [facility], CR, XR CHEST 1V, 01/19/2022, 15:53. [facility], CR, CHEST 2 VIEW, 10/20/2017, 19:31. FINDINGS: Image quality: Good. Mild motion artifact. Lungs and pleura: Moderate patchy airspace opacity bilaterally. This is most pronounced at the lower lobes. There is mild interlobular septal thickening. No pleural effusions or pneumothorax. Central and peripheral airways are patent and normal in caliber. Mediastinum: Heart size is normal. Extensive LAD coronary artery calcifications. No pericardial effusion. No mediastinal adenopathy by size criteria. Thoracic aorta and central pulmonary arteries are normal in size. Esophagus is normal in caliber. No hiatal hernia. Bones and chest wall: No suspicious bony lesions. No vertebral body compression fractures. No axillary or supraclavicular adenopathy by size criteria. Thyroid gland is unremarkable. Abdomen: Visualized upper abdominal solid organs and bowel loops appear normal in the absence of contrast. IMPRESSION: 1. Moderate bilateral patchy airspace opacity. Suspect infectious/inflammatory etiology such as multifocal pneumonia. 2. There is mild interlobular septal thickening. There could be a component of pulmonary edema or background interstitial lung disease. 3. No pleural effusion. Recommend follow-up imaging of the chest; CT or CXR. Dictated by: Pipe Zapata M.D. on 01/20/2022 at 9:11 Approved by: Pipe Zapata M.D. on 01/20/2022 at 9:19
--- NOTE | 2022-01-20 00:38 | P.HP_ITS ---
History of Present Illness History of Present Illness Date Patient Seen: 01/19/22 Time Patient Seen: 22:30 Chief complaint: pneumonia 2 weeks ago, still feeling bad Narrative: Ms. Richards is a 76W woth PMH HTN who presents with cough and shortness of breath. She states she has had pneumonia frequently in the past. She states she initially started feeling bad three months ago. She was not clear what symptoms she had. For the last few weeks she has been having worsening cough (non- productive), shortness of breath, and subjective fevers. She is also fatigued an d dizzy and has no appetite. She has never smoked, she does not have any known cardiac and pulmonary history. She lives a hermetic life and does not have known mold or animals in the house. No recent travel In the ED workup was done, vitals notable for temp 98.4, blood pressure 170s/80s. Labs notable for WBC 11.8, plts 448. creatinine 0.8. BNP 174. COVID negative. Trop negative. Chest xray showed bilateral patchy airspace opacity. She was ordered for IV ceftriaxone and azithromycin and admitted for further treatment. Family history: Father with CAD Social history: never smoker Patient History Medical History Hypertension Surgical History History of carpal tunnel repair Family & Social History Social History: household members none Prior Living Arrangements House Safety & Behavioral: Feels Safe in Current Yes Environment Been Physically Hurt or No Threatened By a Person Tobacco & Substance use: Smoking Status Never smoker alcohol intake never Substance Use Type does not use Meds Home Medications and Allergies Home Medications Medication Instructions Recorded Confirmed Type aspirin 81 mg tablet,delayed 81 mg PO QDAY #0 10/31/17 01/19/22 History release varicella-zoster glycoE [id number] 50 mcg IM ONCE #1 each 02/05/19 08/11/21 Rx adj(PF) 50 mcg/0.5 mL IM susp, kit (Shingrix (PF)) doxepin 10 mg capsule 10 mg PO HSP PRN #30 cap 09/23/19 01/19/22 Rx Allergies Allergy/AdvReac Type Severity Reaction Status Date / Time shellfish derived Allergy Severe I SWELL Verified 01/19/22 15:14 UP ibuprofen [From MOTRIN] AdvReac Severe MAKED ME Verified 08/11/21 13:23 GO BLIND AND INCREASED MY BLOOD PRESSURE pseudoephedrine AdvReac Severe REALLY Verified 08/11/21 13:23 [From SUDAFED] DRIES ME OUT THAT I CAN'T EVEN PEE Review of Systems Review of Systems Narrative: 14 systems reviewed and negative aside from what is noted in HPI Exam Vital Signs (past 8 hours): - 01/19/22 17:00 01/19/22 17:30 01/19/22 17:33 Temperature Pulse Rate 85 88 90 Respiratory Rate 26 H 27 H 27 H Blood Pressure 174/94 H Pulse Oximetry 94 95 94 01/19/22 18:00 01/19/22 18:26 01/19/22 18:30 Temperature Pulse Rate 94 H 85 83 Respiratory Rate 48 H 28 H 24 Blood Pressure 187/111 H Pulse Oximetry 93 97 98 01/19/22 19:00 01/19/22 19:06 01/19/22 19:30 Temperature Pulse Rate 96 H 85 Respiratory Rate 23 Blood Pressure 177/95 H 165/87 H Pulse Oximetry 94 01/19/22 20:35 01/20/22 00:03 Temperature 98.7 F 97.4 F L Pulse Rate 87 74 Respiratory Rate 20 18 Blood Pressure 170/93 H 169/90 H Pulse Oximetry 98 95 Oxygen Delivery Method Nasal Cannula Oxygen Flow Rate 2 Narrative Exam Narrative: GEN: mild respiratory distress HEENT: R eye conjunctival injection, moist mucous membranes NECK: trachea midline, no jvd CV: regular rate and rhythm, no murmurs PULM: fine bilateral crackles bilaterally ABD: soft, nontender, nondistended, no organomegaly, normal bowel sounds EXT: warm and well perfused, no edema NEURO: awake, alert, oriented, no focal deficits Objective Labs Result Diagrams: 01/19/22 15:10 01/19/22 15:10 Labs: Laboratory Results - last 24 hr 01/19/22 01/19/22 01/19/22 14:42 15:10 15:10 WBC 11.8 H RBC 3.72 L Hgb 12.1 Hct 34.8 L MCV 93.5 MCH 32.5 MCHC 34.8 RDW 12.4 Plt Count 448 H Neut % (Auto) 78.1 H Lymph % (Auto) 12.0 L [place] % (Auto) 6.6 Eos % (Auto) 2.8 Baso % (Auto) 0.5 Neut # (Auto) 9200 H Lymph # (Auto) 1400 [place] # (Auto) 800 Eos # (Auto) 300 Baso # (Auto) 100 Sodium 134 L Potassium 3.3 L Chloride 92 L Carbon Dioxide 30 BUN 13 Creatinine 0.80 Estimated GFR > 60 BUN/Creatinine Ratio 16.3 Glucose 102 Calcium 9.1 Magnesium 1.9 Total Bilirubin 0.6 AST 28 ALT 25 Alkaline Phosphatase 105 Total Creatine Kinase CK-MB (CK-2) CK-MB (CK-2) Rel Index Troponin I NT-Pro-B Natriuret Pep 174 Total Protein 7.9 Albumin 3.7 Globulin 4.2 H Albumin/Globulin Ratio 0.9 L SARS-CoV-2 (PCR) Negative 01/19/22 15:10 WBC RBC Hgb Hct MCV MCH MCHC RDW Plt Count Neut % (Auto) Lymph % (Auto) [place] % (Auto) Eos % (Auto) Baso % (Auto) Neut # (Auto) Lymph # (Auto) [place] # (Auto) Eos # (Auto) Baso # (Auto) Sodium Potassium Chloride Carbon Dioxide BUN Creatinine Estimated GFR BUN/Creatinine Ratio Glucose Calcium Magnesium Total Bilirubin AST ALT Alkaline Phosphatase Total Creatine Kinase 48 CK-MB (CK-2) TNP CK-MB (CK-2) Rel Index TNP Troponin I < 0.012 NT-Pro-B Natriuret Pep Total Protein Albumin Globulin Albumin/Globulin Ratio SARS-CoV-2 (PCR) Assessment & Plan Assessment & Plan narrative: Ms. Richards is a 76W with PMH HTN who presents with cough and shortness of breath. 1. Acute respiratory failure secondary to probable pneumonia -elevated WBC, chest xray with opacity, patient with cough, consistent with possible pneumonia though her symptoms did not start recently -requiring oxygen, as sats in 80s with exertion -tried outpatient abx, appears to have taken doxycycline without effect -ordered for IV ceftriaxone, azithromycin -ordered sputum culture -ordered high res CT chest as patient has had symptoms for months -follow up blood cultures -PRN nebs 2. Hypertension -not on medications CODE: Full Proxy: Em Muhammad I have utilized all available resources to reconcile the patient's home medications. Time Spent With Patient Critical Care time: I spent a total of [] minutes of critical care time on this patient's care today; this time is exclusive of procedural time. Quality MIPS - Admit I confirm the patient?s Advance Care Plan is present, Code status is documented, Surrogate decision maker is in patient?s record [If Yes, STOP here]: Yes
[2022-01-20 01:38] LABS: Procalcitonin 0.06 ng/mL (<0.5)
[2022-01-20 05:14] LABS: Add Manual Diff / Slide Review NO; Basophils Absolute Auto 100 /uL (0-100); Basophils Percent Auto 0.7 % (0-2); Eosinophils Absolute Auto 600 /uL (0-450); Hematocrit 34.4 % (36-46); Hemoglobin 11.8 g/dL (12.0-16.0); Lymphocytes Absolute Auto 1900 /uL (1100-4500); Mean Corpuscular HGB Conc 34.3 % (30-36); Mean Corpuscular Volume 93.5 fL (80-100); Monocytes Absolute Auto 900 /uL (0-900); Monocytes Percent Auto 7.6 % (3-14); Neutrophils Absolute Auto 8500 /uL (1500-7000); Neutrophils Percent Auto 70.7 % (50-75); Platelet Count 455 X10^3/uL (150-400); Red Blood Cell Count 3.69 X10^6/uL (4.0-5.2); Red Cell Distribution Width 12.4 % (11.6-14.8)
[2022-01-20 05:27] LABS: BUN Creatinine Ratio 14.1 (6-22); Blood Urea Nitrogen 10 mg/dL (7-17); Calcium 8.7 mg/dL (8.4-10.2); Carbon Dioxide 30 mmol/L (22-32); Chloride 95 mmol/L (98-107); Estimated Glomerular Filt Rate > 60 mL/min (>60); Glucose 108 mg/dL (80-110); HEMOLYSIS < 15 (0-50); Potassium 3.5 mmol/L (3.4-5.1); Sodium 133 mmol/L (137-145)
[2022-01-20] MEDS: ENOXAPARIN 40 MG/0.4 ML SYRINGE SUBCUT (08:53)
[2022-01-20] MEDS: DOXYCYCLINE HYCLATE 100 MG TABLET PO ×2 (11:47→21:03)
[2022-01-20] MEDS: FUROSEMIDE 40 MG TABLET PO (13:03)
--- NOTE | 2022-01-20 13:16 | P.PN_ITS ---
Subjective Subjective Date Patient Seen: 01/20/22 Interval history: PATIENT ADMITTED TO THE HOSPITAL WITH PNEUMONIA. BEING TREATED FOR SUSPECTED COMMUNITY ACQUIRED PNEUMONIA ON ANTIBIOTIC THERAPY SYNCOPAL EPISODE NOTED ON 01/20. MICTURITION SYNCOPE SUSPECTED. EKG READ FINDINGS TODAY PATIENT HAD A SYNCOPAL EPISODE WHILE USING THE BOWEL FROM THIS MORNING LABS HAS BEEN STABLE HYPOXEMIA DURING THE EVENT SHE DENIES ANY CONFUSION SHE ALSO DENIES ANY CHEST PAIN OR CHEST PRESSURE NO SHORTNESS OF BREATHS DESPITE HYPOXEMIA PER PULSE OX READING Exam Vital Signs (past 8 hours): - 01/20/22 06:00 01/20/22 07:53 01/20/22 12:00 Temperature 97.7 F 97.4 F L Pulse Rate 64 84 Respiratory Rate 16 19 Blood Pressure 136/89 143/109 H Pulse Oximetry 97 93 96 Oxygen Delivery Method Room Air Oxygen Flow Rate 5 Narrative Exam Narrative: NO ACUTE DISTRESS. PATIENT IS ALERT ORIENTED X3. HEAD ATRAUMATIC NORMOCEPHALIC NECK : SUPPLE WITHOUT ADENOPATHY NO CAROTID BRUITS EYE: EOMI, PERRLA, NORMAL CONJUNCTIVA; NO JAUNDICE CHEST: REGULAR RATE. NO RUBS. PMI IS NON DISPLACED. NO MURMURS; NORMAL S1- S2 PULMONARY: DECREASED BS OVER THE BASES. MILD BIBASILAR CRACKLES NOTED; NO INCREASED DULLNESS TO PERCUSSION NO WHEEZING. NO RALES. NO RHONCHI. ABDOMEN: OBESE BUT SOFT. NONTENDER. NONDISTENDED. BOWEL SOUNDS ARE PRESENT IN ALL 4 QUADRANTS. NO MASS. EXTREMITIES: 1+ NONPITTING BILATERAL LOWER EXTREMITY EDEMA.. NO CYANOSIS CLUBBING NOTED. SENSATION INTACT DISTALLY NEURO: CRANIAL NERVES 2-12 GROSSLY INTACT. NO FOCAL NEUROLOGICAL DEFICIT NOTED. MSK: NORMAL RANGE OF MOTION FOR AGE. NO JOINT EFFUSION. SKIN: NORMAL FOR ETHNICITY; NO ECCHYMOSIS. NO LESION. GOOD TURGOR.; NO RASHES : NORMAL EXTERNAL GENITALIA. PSYCH : APPROPRIATE MOOD AND AFFECT. ALERT AWAKE ORIENTED X3 Objective Labs Result Diagrams: 01/21/22 05:20 01/21/22 05:20 Labs: Laboratory Results - last 24 hr 01/19/22 01/19/22 01/19/22 14:42 15:10 15:10 WBC 11.8 H RBC 3.72 L Hgb 12.1 Hct 34.8 L MCV 93.5 MCH 32.5 MCHC 34.8 RDW 12.4 Plt Count 448 H Neut % (Auto) 78.1 H Lymph % (Auto) 12.0 L [place] % (Auto) 6.6 Eos % (Auto) 2.8 Baso % (Auto) 0.5 Neut # (Auto) 9200 H Lymph # (Auto) 1400 [place] # (Auto) 800 Eos # (Auto) 300 Baso # (Auto) 100 Sodium 134 L Potassium 3.3 L Chloride 92 L Carbon Dioxide 30 BUN 13 Creatinine 0.80 Estimated GFR > 60 BUN/Creatinine Ratio 16.3 Glucose 102 Calcium 9.1 Magnesium 1.9 Total Bilirubin 0.6 AST 28 ALT 25 Alkaline Phosphatase 105 Total Creatine Kinase CK-MB (CK-2) CK-MB (CK-2) Rel Index Troponin I NT-Pro-B Natriuret Pep 174 Total Protein 7.9 Albumin 3.7 Globulin 4.2 H Albumin/Globulin Ratio 0.9 L Procalcitonin SARS-CoV-2 (PCR) Negative 01/19/22 01/19/22 01/20/22 15:10 15:10 05:00 WBC 12.0 H RBC 3.69 L Hgb 11.8 L Hct 34.4 L MCV 93.5 MCH 32.0 MCHC 34.3 RDW 12.4 Plt Count 455 H Neut % (Auto) 70.7 Lymph % (Auto) 16.0 L [place] % (Auto) 7.6 Eos % (Auto) 5.0 H Baso % (Auto) 0.7 Neut # (Auto) 8500 H Lymph # (Auto) 1900 [place] # (Auto) 900 Eos # (Auto) 600 H Baso # (Auto) 100 Sodium Potassium Chloride Carbon Dioxide BUN Creatinine Estimated GFR BUN/Creatinine Ratio Glucose Calcium Magnesium Total Bilirubin AST ALT Alkaline Phosphatase Total Creatine Kinase 48 CK-MB (CK-2) TNP CK-MB (CK-2) Rel Index TNP Troponin I < 0.012 NT-Pro-B Natriuret Pep Total Protein Albumin Globulin Albumin/Globulin Ratio Procalcitonin 0.06 SARS-CoV-2 (PCR) 01/20/22 05:00 WBC RBC Hgb Hct MCV MCH MCHC RDW Plt Count Neut % (Auto) Lymph % (Auto) [place] % (Auto) Eos % (Auto) Baso % (Auto) Neut # (Auto) Lymph # (Auto) [place] # (Auto) Eos # (Auto) Baso # (Auto) Sodium 133 L Potassium 3.5 Chloride 95 L Carbon Dioxide 30 BUN 10 Creatinine 0.71 Estimated GFR > 60 BUN/Creatinine Ratio 14.1 Glucose 108 Calcium 8.7 Magnesium Total Bilirubin AST ALT Alkaline Phosphatase Total Creatine Kinase CK-MB (CK-2) CK-MB (CK-2) Rel Index Troponin I NT-Pro-B Natriuret Pep Total Protein Albumin Globulin Albumin/Globulin Ratio Procalcitonin SARS-CoV-2 (PCR) [facility] Medical History Hypertension Surgical History History of carpal tunnel repair Social History household members: none Smoking Status: Never smoker second hand exposure: No (I was exposed with I was younger, but not since I was 36.) alcohol intake: never substance use type: does not use Assessment & Plan Assessment & Plan narrative: IMPRESSION COMMUNITY-ACQUIRED PNEUMONIA ACUTE HYPOXIC RESPIRATORY FAILURE SECONDARY TO ABOVE LEUKOCYTOSIS. DAILY CBC SYNCOPE. MICTURITION SUSPECTED. MONITOR CLOSELY ON TELE POSSIBLE ANEMIA CHRONIC DISEASE POSSIBLE HYPERTENSIVE URGENCY THROMBOCYTOSIS. COULD BE REACTIVE HYPONATREMIA. MILD. COULD BE MILD SIADH POSSIBLE PHYSICAL DECONDITIONING HYPERLIPIDEMIA PER HISTORY PLAN PATIENT WILL BE CONTINUED ON ANTIBIOTICS FOR NOW CEFDINIR IN COMBINATION WITH DOXYCYCLINE HAS BEEN ORDERED ADD ACIDOPHILUS GET SPUTUM CULTURES SOME HYPOXEMIA NOTED TODAY DURING A SYNCOPAL EVENTS WILL ADD OXYGEN THERAPY. MAINTAIN O2 SATURATION>88 % AT ALL TIME GET SERIAL ABG IF INDICATED REPEAT CHEST X-RAY WELL IF INDICATED NO PRIOR HISTORY OF COPD/TOBACCO USE NO INDICATION FOR STEROIDS AT THIS TIME HOWEVER WILL ADD DUONEB TREATMENTS MONITOR CLOSELY. NO SIGNIFICANT ABNORMALITY NOTED ON TELEMETRY WILL CONSIDER ECHOCARDIOGRAM AND ULTRASOUND CAROTID ARTERIES PATIENT IS HYPERTENSIVE AND DOES NOT TAKE ANY HOME MEDICATIONS APART FROM SOME TYPE OF SUPPLEMENT WILL START ON METOPROLOL WILL ALSO ADD NEEDED HYDRALAZINE. CONSIDER OTHER AGENTS INDICATED CLINICALLY. ADDITIONAL MANAGEMENT PER CLINICAL COURSE Time Spent With Patient Critical Care time: I spent a total of [] minutes of critical care time on this patient's care today; this time is exclusive of procedural time.
--- NOTE | 2022-01-20 13:28 | DI.ECHO.S_ITS ---
[place] +---------+ Hospital +---------+ : : [address] : [address] [place] : : : : [id number] : : : : Phone: [phone] Echocardiogram Report + :Name: YISSEL BOUDREAUX Study Date: 01/21/2022 Height: 64 in : :[facility] ReadingLocation: Weight: 170 lb: : Gender: Female BSA: 1.8 m2 : :: 1945 Age: 76 yrs : :Reason For Study: Syncope : :Ordering Physician: PRAVEENA, : :SALAZAR Performed By: Quan Fontenot : :Referring: SALAZAR GRISSOM : + Interpretation Summary The left ventricle is normal in size. The ejection fraction is estimated to be 55-60%. The right ventricle is normal in size and function. There is mild tricuspid regurgitation. The right ventricular systolic pressure is estimated to be at least 27 mmHg based on an estimated right atrial pressure of 3 mm Hg. There is aortic root sclerosis/calcification. Mild atherosclerotic plaque(s) in the aortic arch. Procedure: A two-dimensional transthoracic echocardiogram with color flow and Doppler was performed. The study quality was technically adequate. There is no prior echocardiogram noted for this patient. The patient was in normal sinus rhythm during the exam. Left Ventricle: The left ventricle is normal in size. Proximal septal thickening is noted. There is no echo evidence for significant left ventricular outflow tract obstruction. There is no thrombus. Left ventricular systolic function is normal. The ejection fraction is estimated to be 55-60%. There are no focal wall motion abnormalities. MV E/A: 0.97 Med Peak E' Edward: 4.5 cm/sec E/E' med: 15.5. Right Ventricle: The right ventricle is normal in size and function. Atria: The left atrium is mildly dilated. Right atrial size is normal. The interatrial septum grossly appears intact with no obvious evidence for an atrial septal defect. Mitral Valve: There is mild mitral annular calcification. The mitral papillary muscle appears thickened and/or calcified. There is trace mitral regurgitation. Aortic Valve: The aortic valve is normal in structure and function. The aortic valve is trileaflet. There is no aortic valve stenosis. No aortic regurgitation is present. Tricuspid Valve: The tricuspid valve is normal. There is mild tricuspid regurgitation. The right ventricular systolic pressure is estimated to be at least 27 mmHg based on an estimated right atrial pressure of 3 mm Hg. Pulmonic Valve: The pulmonic valve is not well seen, but is grossly normal. There is a trace or physiologic amount of pulmonic regurgitation. Great Vessels: The aortic root is normal size. There is aortic root sclerosis/calcification. The dimensions of the ascending aorta are normal. Mild atherosclerotic plaque(s) in the aortic arch. The IVC is of normal diameter and collapses greater than 50% with a sniff. This suggests a low right atrial pressure of 3 mm Hg. Pericardium/ Pleura There is no pericardial effusion. There is an anterior echo-free space consistent with a fat pad. There is no pleural effusion. MMode/2D Measurements & Calculations LVIDd: 4.9 cm LVOT diam: 1.9 cm LVIDs: 3.2 cm Ao root diam: 3.0 cm FS: 35.3 % asc Aorta Diam: 3.2 cm IVSd: 1.0 cm LVPWd: 0.93 cm LV martinez. diameter/BSA (cm/m^2): 2.7 LV sys. diameter/BSA (cm/m^2): 1.7 LA A2 area: 24.2 cm2 RA long axis: 5.8 cm LA A4 area: 22.6 cm2 RA area: 15.7 cm2 LA length (vol): 6.1 cm RA vol: 36.2 ml LA vol: 75.8 ml RA : 19.8 ml/m2 LA vol index: 41.5 ml/m2 TAPSE: 1.9 cm Doppler Measurements & Calculations Ao V2 max: 162.6 cm/sec LVOT Max Edward: 118.6 cm/sec Ao V2 mean: 112.5 cm/sec LV V1 max P.6 mmHg Ao max P.6 mmHg LV V1 VTI: 25.1 cm Ao mean P.6 mmHg GUNJAN(I,D): 2.2 cm2 Ao V2 VTI: 31.9 cm GUNJAN(V,D): 2.0 cm2 sev ratio: 0.79 GUNJAN indexed to BSA (cm^2/m^2): 1.2 MV E max edward: 69.5 cm/sec TR max edward: 243.3 cm/sec MV A max edward: 71.7 cm/sec TR max P.7 mmHg MV E/A: 0.97 Med Peak E' Edward: 4.5 cm/sec E/E' med: 15.5 Lat Peak E' Edward: 6.5 cm/sec E/E' lat: 10.6 E/e' average: 13.0 MV dec time: 0.20 sec SV(BARBIE): 69.1 ml Reading Physician:08:17 AM
--- NOTE | 2022-01-20 13:28 | DI.US.S_ITS ---
PROCEDURE: US CAROTID DOPPLER BI INDICATIONS: SYNCOPE TECHNIQUE: Color and pulse Doppler interrogation was performed of both carotid systems, with image documentation and velocity measurements. COMPARISON: None. FINDINGS: Stenosis calculations are based on SRU (Society of Radiologists in Ultrasound) criteria. Right side: Brachial blood pressure: 125/71 mm Hg. Common carotid artery peak systolic velocity: 80 cm/sec. Internal carotid artery peak systolic velocity: 61 cm/sec. Internal carotid artery end diastolic velocity: 22 cm/sec. External carotid artery peak systolic velocity: 57 cm/sec. ICA/CCA peak systolic ratio: 0.93 . Sandoval scale imaging description: Calcified plaque Percent internal carotid artery stenosis: Less than 50% . Vertebral artery: Flow direction is antegrade. Left side: Brachial blood pressure: 129/75 mm Hg. Common carotid artery peak systolic velocity: 71 cm/sec. Internal carotid artery peak systolic velocity: 67 cm/sec. Internal carotid artery end diastolic velocity: 22 cm/sec. External carotid artery peak systolic velocity: 65 cm/sec. ICA/CCA peak systolic ratio: 0.76 . Sandoval scale imaging description: Calcified plaque Percent internal carotid artery stenosis: Less than 50% . Vertebral artery: Flow direction is antegrade. IMPRESSION: Mild less than 50% stenosis of the origins of the right and left internal carotid arteries. Dictated by: Jennifer Johnston MD, PhD on 01/20/2022 at 14:50 Approved by: Jennifer Johnston MD, PhD on 01/20/2022 at 14:51
[2022-01-20] MEDS: METOPROLOL ER 25 MG TABLET PO (14:08)
[2022-01-20] MEDS: CEFDINIR 300 MG CAPSULE PO ×2 (14:09→21:03)
[2022-01-20] MEDS: ALBUTEROL/IPRATROPIUM 3 ML AMPUL INH ×2 (14:29→19:50)
--- NOTE | 2022-01-20 14:50 | PT.IIE ---
Current Diagnoses Acute respiratory failure, unspecified whether with hypoxia or hypercapnia (01/19/22) Surgical History (Last Reviewed 01/20/22 @ 00:38 by Checo Avitia MD) History of carpal tunnel repair Medical History (Last Reviewed 01/20/22 @ 00:38 by Checo Avitia MD) Hypertension Physical Therapy Inpatient Evaluation/Re-Eval M1 PT/OT-IP Prior Functional Status Start: 01/20/22 16:39 Freq: NEEDED Status: Active Protocol: Document 01/20/22 14:50 AB (Rec: 01/20/22 17:08 [facility]) Medical Review Prior Functional Status Medical History Reviewed Yes Communication able to make needs known Mobility and Gait pt stated that she is modified independent with all mobilities and ambulation without AD; stated that she holds on to things around her house and that her house is small; asked pt regarding outdoor mobility and stated that she does not go out much Social History Household Members none Living Arrangements House Number of Floors (Floors) One Floor Number of Stairs To Enter/Railing? ramp to enter Home Environment Ramp Home Equipment Straight Cane M2 PT-IP Current Condition Start: 01/20/22 16:39 Freq: NEEDED Status: Active Protocol: Document 01/20/22 14:50 AB (Rec: 01/20/22 17:08 AB [facility]) Physical Therapy Current Condition Current Condition Evaluation Date 01/20/22 Treatment Diagnosis PNA; difficulty in walking Onset Date 01/19/22 M3 PT-IP Subjective Start: 01/20/22 16:39 Freq: NEEDED Status: Active Protocol: Document 01/20/22 14:50 AB (Rec: 01/20/22 17:08 AB [facility]) Subjective Physical Therapy Visit Type Type Initial Evaluation Visit Start Time 14:50 Visit Stop Time 15:30 Total Visit Minutes 40 Number of RELAY OPERATOR Visits 0 Physical Therapy Visit Comments Patient Comments agreeable to do PT M4 PT-IP Mobility and Gait Start: 01/20/22 16:39 Freq: NEEDED Status: Active Protocol: Document 01/20/22 14:50 AB (Rec: 01/20/22 17:08 AB [email or web address]) PT-Bed Mobility Assessment Supine to Sit Supine to Sit Standby Assistance Sit to Supine Sit to Supine Standby Assistance PT-Transfer Assessment Sit to and From Stand Sit to and from Stand Contact Guard Assistance,Use of Upper Extremities Equipment Transfer Assistive Device Gait Belt Orthotic/Prosthetic Devices or Brace: No Comments Mobility Comments checked with nurse and NAC informed PT regarding syncopal episode this am with pt and that pt has previous episodes at home. BP in supine: 139/75 O2 sat 95-99% with O2 on. completed supine to sit HOB elevated SBA . presents with difficulty completing task and requiring increase time to complete. able to sit on EOB SBA. completed sit to stand CGA and ambulated in room without AD min A and cues. presents with slow pace and unsteady gait. pt seems slow to respon do questions. O2 during ambulation 95%. pt went back to bed as requested. positioned in bed. call light and table placed within reach. educated pt regarding safety and use of FWW but pt stated that there is no room at home for a FWW. Agreed to use SPC and will assess safety with SPC use on next tx session. pt refused to go to SNF but agreed to services. Gait Assessment Gait Gait Assistance Required: Minimum Assistance Distance (Feet) 20 Able to Maintain Weight Bearing Status Yes During Gait Assistive Devices Assistive Device None,Gait Belt Orthotic/Prosthetic Devices or Brace: No Gait Deviations General Gait Pattern Decreased Stride Length, Decreased Feet Clearance,Step- to Gait Factors Limiting Gait Function Factors Limiting Gait Function Decreased Activity Tolerance, Decreased Strength,Poor Balance,Poor Safety Awareness, Respiratory Distress PT-Balance Assessment Sitting Balance and Reactions Static Sitting Balance Ability Good Dynamic Sitting Balance Ability Good Standing Balance and Reactions Static Standing Balance Ability Fair Dynamic Standing Balance Ability Fair Device Used FWW M5 PT-IP Objective Assessments Start: 01/20/22 16:39 Freq: NEEDED Status: Active Protocol: Document 01/20/22 14:50 AB (Rec: 01/20/22 17:08 AB [email or web address]) Orientation Orientation/Cognition Level of Alertness Alert Orientation Name,Place,Situation Language Function Ability No Deficits Noted Safety Awareness Decreased Safety Awareness Memory Description No Deficits Noted Gross Range of Motion Lower Extremity ROM Assessment Within Functional Limits Strength Lower Extremity Strength Hip 4-/5 Knee 4-/5 Sensation Assessment Sensation Gross Sensation WNL Muscle Tone Muscle Tone WNL Yes M6 PT-IP Treatment Start: 01/20/22 16:39 Freq: NEEDED Status: Active Protocol: Document 01/20/22 14:50 AB (Rec: 01/20/22 17:08 AB [email or web address]) Physical Therapy Treatment Education Education Provided Safety M7 PT-IP Assessment and Plan Start: 01/20/22 16:39 Freq: NEEDED Status: Active Protocol: Document 01/20/22 14:50 AB (Rec: 01/20/22 17:08 [email or web address]) PT Summary Assessment and Plan Potential Rehabilitation Potential Fair Status of Condition at Evaluation Evolving Summary Impairments Pain,ROM,Strength,Balance, Coordination,Sensation,Tone, Cognition,Bed Mobility, Transfers,Gait,Activity Tolerance Assessment Summary pt requiring min A with ambulation without AD and has decrease activity tolerance affecting mobility. pt lives alone and does not have any support at home. pt stated that her friend may assist if she ask for assistance. pt refused to go to SNF but agreeable to have services. will assess ambulation using SPC next tx session. pt refusing to use FWW and stated that she has a small house and the FWW will just be in the way. will continue to assess progress. Goals Bed Mobility Goal Independent Transfer Goal Independent,Cane Gait Goal Independent,Cane Gait Distance 200 Other Goals ambulation without AD 250 ft SBA Days to Meet Goals 10 Frequency of Treatment Frequency Of Treatment Once a Day Treatment Plan Physical Therapy Treatment Plan Bed Mobility Training,Transfer Training,Gait Training, Therapeutic Exercise,Balance Retraining,Discharge Planning, Hot or Cold Pack,Neuromuscular Re-ed,Coordination Retraining Precautions Other Precautions syncope; O2 sat Recommendations To Nursing Amount of Assist Needed 1 Person Assist Discharge Recommendations PT Discharge Recommendations Home with 24/ Assist Available,Home Health,Home vs SNF Transportation Needs at Discharge Private Vehicle,Wheelchair/ Cabulance
--- NOTE | 2022-01-20 15:40 | CM.DANOTE ---
Initial DCP Assessment Note Pt is a 76 yo female, resident of [place], arrives w/recent dx of pneumonia, not improving admitted for further management, IV abx therapy PCP: Radha Jimenez Payer: [facility] Reviewed chart, met w/patient to introduce role. Brief visit; patient drowsy...states she lives alone, active and indp until she became sick recently. Patient has no children or family locally, states she has friends and that I am very self sufficient Patient denies needs from this FOOD VENDOR; will remain available in case this changes before patient's discharge. SOLA Osborne Discharge Planning/Care Management CM Discharge Assessment Start: 01/20/22 15:28 Freq: Status: Active Protocol: Document 01/20/22 15:28 ALIYAH (Rec: 01/20/22 15:39 ALIYAH [id number]) Discharge Planning Assessment Assigned Data Analyst Report Writer SOLA Borges DPOA/Assigned Designee Name Em Newton, friend Contact Information [phone] Advance Directives? Yes Advance Directives on File Yes History Provided By Patient Has Patient been admitted in last 30 No days? Prior Living Arrangements House Household Members none Type of transporation used prior to Drives own vehicle admit Independent with ADL's Yes Is patient alert and oriented? Yes Barriers to Discharge No Discharge Plan Home Transportation Arrangement Friends Referrals Initiated None needed
--- NOTE | 2022-01-20 17:30 | OT.IPNOTE ---
Attempted to see pt for OT eval and pt just getting dinner . Able to get pt's prior level. To check on pt tomorrow for OT eval. NO charge.
--- NOTE | 2022-01-20 19:25 | PC.NURSE ---
Pt is AxOx4, needs STA with bedside commode. VSS, however, pt passed out in the bathroom briefly this morning. Rapid response team is called. EKG done and HR sinus, no problem identified. Pt is on 3L NC and sats mid 90s. Pt denies pain. Pt is on PO Lasix and voiding well. Tele is showing sinus rhythm most of the time,however, there was a time, HR was tachy when pt was asleep. Lungs sound crackles on bottom and posterior. No other changes.
[2022-01-20] MEDS: ONDANSETRON 4 MG/2 ML INJ IV (21:03)
[2022-01-20] MEDS: LACTOBACILLUS ACIDOPHILUS TABLET 1 EACH PO (21:07)
[2022-01-20] MEDS: POTASSIUM CHLORIDE 20 MEQ TAB 40 MEQ PO (21:07)
[2022-01-21] VITALS (15 sets, daily range): BP systolic 96–145; BP diastolic 57–87; PULSE 6–98; RESP 14–20; TEMP 36.3–37.6; O2SAT 83–97
[2022-01-21 05:57] LABS: Add Manual Diff / Slide Review NO; Basophils Absolute Auto 100 /uL (0-100); Basophils Percent Auto 0.7 % (0-2); Eosinophils Absolute Auto 600 /uL (0-450); Eosinophils Percent Auto 6.3 % (2-4); Hematocrit 32.1 % (36-46); Hemoglobin 11.3 g/dL (12.0-16.0); Lymphocytes Absolute Auto 1600 /uL (1100-4500); Lymphocytes Percent Auto 18.3 % (25-40); Mean Corpuscular Hemoglobin 32.8 PG (26-34); Mean Corpuscular Volume 93.6 fL (80-100); Monocytes Absolute Auto 700 /uL (0-900); Monocytes Percent Auto 8.2 % (3-14); Neutrophils Absolute Auto 6000 /uL (1500-7000); Neutrophils Percent Auto 66.5 % (50-75); Platelet Count 412 X10^3/uL (150-400); Red Blood Cell Count 3.43 X10^6/uL (4.0-5.2); Red Cell Distribution Width 12.4 % (11.6-14.8)
[2022-01-21 06:01] LABS: Alanine Aminotransferase 17 IU/L (<35); Albumin 3.2 g/dL (3.5-5.0); Albumin Globulin Ratio 0.9 (1.0-2.8); Alkaline Phosphatase 80 U/L (38-126); Aspartate Aminotransferase 20 IU/L (14-36); BUN Creatinine Ratio 10.6 (6-22); Bilirubin Total 0.6 mg/dL (0.2-1.3); Blood Urea Nitrogen 9 mg/dL (7-17); Calcium 8.8 mg/dL (8.4-10.2); Carbon Dioxide 33 mmol/L (22-32); Chloride 96 mmol/L (98-107); Estimated Glomerular Filt Rate > 60 mL/min (>60); Globulin 3.6 g/dL (1.7-4.1); Glucose 107 mg/dL (80-110); HEMOLYSIS < 15 (0-50); Magnesium 1.9 mg/dL (1.6-2.3); Phosphorous 3.6 mg/dL (2.8-4.1); Potassium 3.8 mmol/L (3.4-5.1); Sodium 134 mmol/L (137-145); Total Protein 6.8 g/dL (6.3-8.2)
[2022-01-21] MEDS: METOPROLOL ER 25 MG TABLET PO (09:01)
[2022-01-21] MEDS: DOXYCYCLINE HYCLATE 100 MG TABLET PO ×2 (09:01→22:15)
[2022-01-21] MEDS: ENOXAPARIN 40 MG/0.4 ML SYRINGE SUBCUT (09:01)
[2022-01-21] MEDS: LACTOBACILLUS ACIDOPHILUS TABLET 1 EACH PO ×3 (09:01→16:53)
[2022-01-21] MEDS: CEFDINIR 300 MG CAPSULE PO ×2 (09:01→22:15)
[2022-01-21] MEDS: FUROSEMIDE 40 MG TABLET PO (09:01)
[2022-01-21] MEDS: ALBUTEROL/IPRATROPIUM 3 ML AMPUL INH ×3 (09:08→19:53)
--- NOTE | 2022-01-21 10:27 | OT.IP.EVAL ---
Current Diagnoses Acute respiratory failure, unspecified whether with hypoxia or hypercapnia (01/19/22) Past Medical History (Last Reviewed 01/20/22 @ 00:38 by Checo Avitia MD) Hypertension Surgical History (Last Reviewed 01/20/22 @ 00:38 by Checo Avitia MD) History of carpal tunnel repair Occupational Therapy Inpatient Evaluation/Re-Eval M1 PT/OT-IP Prior Functional Status Start: 01/20/22 16:39 Freq: NEEDED Status: Active Protocol: Document 01/21/22 09:47 [facility] (Rec: 01/21/22 13:12 [facility] [id number]) Medical Review Prior Functional Status Medical History Reviewed Yes Communication able to make needs known Mobility and Gait pt stated that she is modified independent with all mobilities and ambulation without AD; stated that she holds on to things around her house and that her house is small; asked pt regarding outdoor mobility and stated that she does not go out much Activities of Daily Living and IADL's Pt states has been able to do all her ADL and IADl needs but do to feeling so dizzy lately just has been in bed. Social History Household Members none Living Arrangements House Number of Floors (Floors) One Floor Number of Stairs To Enter/Railing? ramp to enter Home Environment Ramp Home Equipment Straight Cane M2 OT-IP Current Condition Start: 01/21/22 12:50 Freq: Status: Active Protocol: Document 01/21/22 09:47 [facility] (Rec: 01/21/22 13:12 [facility] [id number]) Occupational Therapy Current Condition Current Condition Evaluation Date 01/21/22 Treatment Diagnosis PNA, syncope Diagnosis Onset Date 01/19/22 M3 OT- IP Subjective and Pain Start: 01/21/22 12:50 Freq: Status: Active Protocol: Document 01/21/22 09:47 [facility] (Rec: 01/21/22 13:12 [facility] [id number]) OT- Subjective Occupational Therapy Visit Type Type Initial Evaluation Visit Start Time 09:47 Visit Stop Time 10:27 Total Visit Minutes 40 Occupational Therapy Visit Comments Patient Comments Pt wanting to use the bathroom . Patient/Caregiver Goals To go home OT Pain Assessment Pain When Pain Assessed At Rest Pain Present Pain Present Denied Pain M4 OT- IP ADL's Start: 01/21/22 12:50 Freq: Status: Active Protocol: Document 01/21/22 09:47 [facility] (Rec: 01/21/22 13:12 [facility] [id number]) OT ADL-Grooming General Evaluation Grooming Ability Independent Comments OT Grooming Comments Able to do while seated. OT ADL-Oral Care General Eval Oral Care Ability Independent OT ADL-Dressing Comments OT Dressing Comments Pt not wanting to do at this time. OT ADL-Toileting General Evaluation Toileting Ability Standby Assistance Comments OT Toileting Comments Pt able to do her own hygiene needs after set-up. VC to wipe for completeness after a bowel movement. OT ADL-Bathing Comments OT Bathing Comments Not appropriate for a shower due to low BP. M5 OT- IP IADL's Start: 01/21/22 12:50 Freq: Status: Active Protocol: Document 01/21/22 09:47 [facility] (Rec: 01/21/22 13:12 [facility] [id number]) OT-Instrumental Activities of Daily Living Home Safety Awareness Home Safety Comments Pt is a bit confused today and would need assist for all needs due to her safety and low BP. M6 OT- IP Functional Cognition Start: 01/21/22 12:50 Freq: Status: Active Protocol: Document 01/21/22 09:47 [facility] (Rec: 01/21/22 13:12 [facility] [id number]) Cognitive Factors Limiting Selfcare Function Cognitive Ability Level of Alertness Alert,Confusional State Patient Orientation Name Attention Span Ability Capable of Focused Attention, Capable of Sustained Attention Ability to Follow Commands Able to Follow One Step Commands Memory Description Short Term Impaired Safety Awareness Underestimates Need for Assistance Problem Solving Ability Needs Assist to Identify Solutions Cognitive Comments Cognitive Assessment Comments Pt much more confused today. Pt needing more cues for safety today and step by step cues for ADL's. Pt a bit dizzy and whoozy. OT- Vision and Hearing OT- Vision Assessment Visual Acuity Glasses For Reading M7 OT- IP Mobility and Balance Start: 01/21/22 12:50 Freq: Status: Active Protocol: Document 01/21/22 09:47 [facility] (Rec: 01/21/22 13:12 [facility] [id number]) OT- Bed Mobility Assessment Supine to Sit Supine to Sit Assist Standby Assistance Sit to Supine Sit to Supine Assist Standby Assistance Scooting Scooting to Edge of Bed Contact Guard Assistance Scooting Up and Down in Bed Contact Guard Assistance OT-Transfer Assessment Sit to and From Stand Sit to and from Stand Contact Guard Assistance Transfers Transfer Ability Contact Guard Assistance Technique Transfer Destination Bed,Bedside Commode Transfer Technique Stand Step Pivot Devices Transfer Assistive Devices Gait Belt,Front Wheeled Walker Comments Mobility Comments BP sit 130/67, standing 95/50 and 88/46, sitting 122/61, after BSC 113/57, and back to bed sitting 105/62. Pt's O2 on RA from 89-93% and notified nursing and nurse told OT to put 1L of O2 on the pt. OT- Balance Assessment Sitting Balance and Reactions Static Sitting Balance Ability Fair Dynamic Sitting Balance Ability Fair Standing Balance and Reactions Static Standing Balance Ability Fair Dynamic Standing Balance Ability Poor Comments Other Balance Tests/Deviations/Treatment Pt unsteady on her feet , but : denying that she was not feeling well and then admitted that she is dizzy. M8 OT- IP Objective Assessments Start: 01/21/22 12:50 Freq: Status: Active Protocol: Document 01/21/22 09:47 [facility] (Rec: 01/21/22 13:12 [facility] [id number]) OT Gross Range of Motion Upper Extremity Range of Motion ROM Impairments grossy WFL OT Strength Comments Strength Comments At least 3+/5 throughout OT- Coordination Assessment Upper Extremity Finger to Nose Test Within Functional Limits M9 OT- IP Assessment and Plan Start: 01/21/22 12:50 Freq: Status: Active Protocol: Document 01/21/22 09:47 [facility] (Rec: 01/21/22 13:12 [facility] [id number]) OT Summary Assessment and Plan Potential Rehabilitation Potential Good Analytic Complexity at Evaluation Moderate Summary OT Impairments Strength,Balance,Functional Cognition,Functional Mobility, Grooming,Dressing,Toileting, Bathing,Toilet Transfers, Shower Transfers,Activity Tolerance Progress Towards Goals Slow Progress due to Medical Issues,Slow Progress due to Activity Tolerance,Slow Progress due to Cognition Assessment Summary Pt MOD complexity and main barriers are decreased activity tolerance, having low BP when standing, and now needing assist for all needs. Pt would greatly benefit from skilled rehab to work on overall strength, endurance, and independence for ADl and mobility needs as pt lives alone. Goals Self-Feeding Goal Independent Grooming Goal Independent Dressing Goal Independent Toileting Goal Independent Bathing Goal Independent Toilet Transfer Goal Independent Shower Transfer Goal Independent Days to Meet Goals 15 Frequency of Treatment Frequency Of Treatment Once a Day Treatment Plan OT Treatment Plan ADL Training,Functional Cognition Training,Functional Mobility,Patient/Family Education,Discharge Planning Other Treatment Recommendations and Next SLUMS Treatment Focus Discharge Recommendations OT Discharge Recommendations SNF Rehab Home Equipment Needs FWW/4WW Transportation Needs at Discharge Wheelchair/Cabulance
--- NOTE | 2022-01-21 12:17 | PT.IPTN ---
Current Diagnoses Acute respiratory failure, unspecified whether with hypoxia or hypercapnia (01/19/22) Physical Therapy Treatment Note M2 PT-IP Current Condition Start: 01/20/22 16:39 Freq: NEEDED Status: Active Protocol: Document 01/20/22 14:50 AB (Rec: 01/20/22 17:08 AB [id number]) Physical Therapy Current Condition Current Condition Evaluation Date 01/20/22 Treatment Diagnosis PNA; difficulty in walking Onset Date 01/19/22 M3 PT-IP Subjective Start: 01/20/22 16:39 Freq: NEEDED Status: Active Protocol: Document 01/21/22 11:57 KS (Rec: 01/21/22 13:26 KS [id number]) Subjective Physical Therapy Visit Type Type Treatment Note Visit Start Time 11:57 Visit Stop Time 12:17 Total Visit Minutes 20 Number of SPLITTER HEAD Visits 1 Physical Therapy Visit Comments Patient Comments agreeable to do PT M4 PT-IP Mobility and Gait Start: 01/20/22 16:39 Freq: NEEDED Status: Active Protocol: Document 01/21/22 11:57 KS (Rec: 01/21/22 13:26 KS [id number]) PT-Bed Mobility Assessment Supine to Sit Supine to Sit Standby Assistance Sit to Supine Sit to Supine Standby Assistance Scooting Scooting to Edge of Bed Standby Assistance PT-Transfer Assessment Sit to and From Stand Sit to and from Stand Contact Guard Assistance,Use of Upper Extremities Equipment Transfer Assistive Device Gait Belt Orthotic/Prosthetic Devices or Brace: No Transfers Transfer Destination Bed,Bedside Commode Transfer Technique Stand Step Pivot Transfer Ability Level of Assist Contact Guard Assistance Comments Mobility Comments Pt in bed upon arrival and requesting to use BSC. Pts BP supine 126/73. Pt sup<>sit SBA and sit<>stand CGA w/o AD. Pt reported dizziness upon standing. BP 109/57 and O2 87% on 1L O2. Instructed pt to sit and brought BSC next to pt . Pt then performed sit<>stand and stand step pivot from bed to BSC CGA and cues. After voiding pt transferred back to bed and still reporting mild dizziness. DOUBLE BACKER aware. Gait Assessment Comments Gait Comments Stand step pivot only due to decrease in BP and dizziness. PT-Balance Assessment Sitting Balance and Reactions Static Sitting Balance Ability Good Dynamic Sitting Balance Ability Good Standing Balance and Reactions Static Standing Balance Ability Fair Dynamic Standing Balance Ability Fair Device Used none M5 PT-IP Objective Assessments Start: 01/20/22 16:39 Freq: NEEDED Status: Active Protocol: Document 01/20/22 14:50 AB (Rec: 01/20/22 17:08 AB [id number]) Orientation Orientation/Cognition Level of Alertness Alert Orientation Name,Place,Situation Language Function Ability No Deficits Noted Safety Awareness Decreased Safety Awareness Memory Description No Deficits Noted Gross Range of Motion Lower Extremity ROM Assessment Within Functional Limits Strength Lower Extremity Strength Hip 4-/5 Knee 4-/5 Sensation Assessment Sensation Gross Sensation WNL Muscle Tone Muscle Tone WNL Yes M6 PT-IP Treatment Start: 01/20/22 16:39 Freq: NEEDED Status: Active Protocol: Document 01/21/22 11:57 KS (Rec: 01/21/22 13:26 KS [id number]) Physical Therapy Treatment Education Education Provided Safety M7 PT-IP Assessment and Plan Start: 01/20/22 16:39 Freq: NEEDED Status: Active Protocol: Document 01/21/22 11:57 KS (Rec: 01/21/22 13:26 KS [id number]) PT Summary Assessment and Plan Potential Rehabilitation Potential Fair Status of Condition at Evaluation Evolving Summary Impairments Pain,ROM,Strength,Balance, Coordination,Sensation,Tone, Cognition,Bed Mobility, Transfers,Gait,Activity Tolerance Assessment Summary Pt SBA for bed mobility and CGA for transfers. Reported dizziness w/ positional change and BP dropped from 126/73 to 109/57 from sup<>standing. Unable to progress gait. Pt w/ poor safety awareness stating Im good at fainting, just give me the FWW and I will be okay. Educated pt that it is not safe for her to ambulate w / symptomatic low BP, FWW will not assist and reminder pt of fainting episode yesterday. Pt seemingly confused. 87-91% on RA. Pt states she may use 4WW at home but does not want FWW. At this time she is a high fall risk and would benefit from SNF or 24/7 caregivers. Goals Bed Mobility Goal Independent Transfer Goal Independent,Cane Gait Goal Independent,Cane Gait Distance 200 Other Goals ambulation without AD 250 ft SBA Days to Meet Goals 10 Frequency of Treatment Frequency Of Treatment Once a Day Treatment Plan Physical Therapy Treatment Plan Bed Mobility Training,Transfer Training,Gait Training, Therapeutic Exercise,Balance Retraining,Discharge Planning, Hot or Cold Pack,Neuromuscular Re-ed,Coordination Retraining Precautions Other Precautions syncope; O2 sat Recommendations To Nursing Amount of Assist Needed 1 Person Assist Discharge Recommendations PT Discharge Recommendations Home with 27/03 Assist Available,Home Health,SNF Rehab Transportation Needs at Discharge Private Vehicle,Wheelchair/ Cabulance
--- NOTE | 2022-01-21 17:57 | P.PN_ITS ---
Subjective Subjective Interval history: BRIEF PATIENT ADMITTED TO THE HOSPITAL WITH PNEUMONIA. BEING TREATED FOR SUSPECTED COMMUNITY ACQUIRED PNEUMONIA ON ANTIBIOTIC THERAPY SYNCOPAL EPISODE NOTED ON 01/20.? MICTURITION SYNCOPE SUSPECTED. EKG WITH NO FINDINGS TODAY PATIENT REPORTED THAT SHE WANTED TO GO HOME TODAY SHE STATES SHE IS FEELING MUCH BETTER HOWEVER THERE WAS CONCERN FROM NURSING REGARDING BLOOD PRESSURE WHICH HAS BEEN ON THE LOWER SIDE PATIENT DENIES ANY HEADACHES REPORTED SOME DIZZINESS WHILE STANDING DENIED ANY CONFUSION NO CHEST PAIN OR CHEST PRESSURE Exam Vital Signs (past 8 hours): - 01/21/22 11:23 01/21/22 11:31 01/21/22 12:00 Temperature 98.2 F Pulse Rate 98 H 84 Respiratory Rate 14 Blood Pressure 130/87 109/57 L Pulse Oximetry 94 91 01/21/22 13:31 01/21/22 15:31 01/21/22 15:33 Temperature 97.5 F L Pulse Rate 85 88 Respiratory Rate 18 20 Blood Pressure 125/67 98/63 Pulse Oximetry 94 88 L 83 L 01/21/22 15:35 Temperature Pulse Rate Respiratory Rate Blood Pressure Pulse Oximetry 93 Oxygen Delivery Method Nasal Cannula Oxygen Flow Rate 2 Narrative Exam Narrative: NO ACUTE DISTRESS.? PATIENT IS ALERT ORIENTED X3. HEAD ATRAUMATIC NORMOCEPHALIC NECK : SUPPLE WITHOUT ADENOPATHY NO CAROTID BRUITS EYE:? EOMI, PERRLA, NORMAL CONJUNCTIVA; NO JAUNDICE CHEST:? REGULAR RATE.? ? NO RUBS.? PMI IS NON DISPLACED.? NO MURMURS; NORMAL S1- S2 PULMONARY:? DECREASED BS OVER THE BASES.? MILD BIBASILAR CRACKLES NOTED; NO INCREASED DULLNESS TO PERCUSSION NO WHEEZING.? NO RALES.? NO RHONCHI. ABDOMEN:? OBESE BUT SOFT.? NONTENDER.? NONDISTENDED.? BOWEL SOUNDS ARE PRESENT IN ALL 4 QUADRANTS.? NO PALPATING MASS. EXTREMITIES:? 1+ NONPITTING BILATERAL LOWER EXTREMITY EDEMA..? NO CYANOSIS CLUBBING NOTED.? SENSATION INTACT DISTALLY NEURO:? CRANIAL NERVES 2-12 GROSSLY INTACT. NO FOCAL NEUROLOGICAL DEFICIT NOTED. MSK:? NORMAL RANGE OF MOTION FOR AGE.? NO JOINT EFFUSION. SKIN:? NORMAL FOR ETHNICITY; NO ECCHYMOSIS.? NO LESION. ? GOOD? TURGOR.; NO RASHES :? NORMAL EXTERNAL GENITALIA. PSYCH :? APPROPRIATE MOOD AND AFFECT.? ALERT AWAKE ORIENTED X3 Objective Labs Result Diagrams: 05/20/22 05:20 01/21/22 05:20 Labs: Laboratory Results - last 24 hr 01/21/22 01/21/22 05:20 05:20 WBC 9.0 RBC 3.43 L Hgb 11.3 L Hct 32.1 L MCV 93.6 MCH 32.8 MCHC 35.0 RDW 12.4 Plt Count 412 H Neut % (Auto) 66.5 Lymph % (Auto) 18.3 L [place] % (Auto) 8.2 Eos % (Auto) 6.3 H Baso % (Auto) 0.7 Neut # (Auto) 6000 Lymph # (Auto) 1600 [place] # (Auto) 700 Eos # (Auto) 600 H Baso # (Auto) 100 Sodium 134 L Potassium 3.8 Chloride 96 L Carbon Dioxide 33 H BUN 9 Creatinine 0.85 Estimated GFR > 60 BUN/Creatinine Ratio 10.6 Glucose 107 Calcium 8.8 Phosphorus 3.6 Magnesium 1.9 Total Bilirubin 0.6 AST 20 ALT 17 Alkaline Phosphatase 80 Total Protein 6.8 Albumin 3.2 L Globulin 3.6 Albumin/Globulin Ratio 0.9 L [facility] Medical History Hypertension Surgical History History of carpal tunnel repair Social History household members: none Smoking Status: Never smoker second hand exposure: No (I was exposed with I was younger, but not since I was 36.) alcohol intake: never substance use type: does not use Assessment & Plan Assessment & Plan narrative: IMPRESSION COMMUNITY-ACQUIRED PNEUMONIA. LIKELY GRAM-POSITIVE COCCI. ON ANTIBIOTICS ACUTE HYPOXIC RESPIRATORY FAILURE SECONDARY TO ABOVE. IMPROVING LEUKOCYTOSIS.? RESOLVED. CONTINUE DAILY CBC SYNCOPE.? MICTURITION SUSPECTED.? MONITOR CLOSELY ON TELE POSSIBLE ANEMIA CHRONIC DISEASE POSSIBLE HYPERTENSIVE URGENCY THROMBOCYTOSIS.? COULD BE REACTIVE HYPONATREMIA.? MILD.? COULD BE MILD SIADH POSSIBLE PHYSICAL DECONDITIONING HYPERLIPIDEMIA PER HISTORY PLAN PATIENT APPEARED CLINICALLY IMPROVED HOWEVER WILL HOLD DISCHARGE FOR NOW PATIENT REMAINED WITH SOME DIZZINESS/DROWSINESS WHICH IS REPORTED WHILE STANDING/DURING AMBULATION PATIENT HAS BEEN ON BETA ROCCO SINCE ADMISSION PATIENT WAS ALSO ON HYDRALAZINE AND LOSARTAN WELL AMLODIPINE WILL DISCONTINUE THE METOPROLOL, HOLD LOSARTAN AND ALSO DISCONTINUE HYDRALAZINE FOR NOW CONTINUE AMLODIPINE ONLY AT 5 MG DAILY HOPEFULLY THIS WILL ALLOW THE BLOOD PRESSURE TO INCREASE SOMEHOW WITHOUT SIGNIFICANT INHIBITION WILL USE NEEDED MEDICATIONS IF NEEDED FOR SIGNIFICANTLY ELEVATED SYSTOLIC BLOOD PRESSURE ABOVE 170. ADDITIONAL MANAGEMENT PER CLINICAL COURSE HOPEFULLY WILL BE ABLE TO DISCHARGE TO HOME WITH HOME HEALTH IN THE NEXT 24 HOURS 01/20 PATIENT WILL BE CONTINUED ON ANTIBIOTICS FOR NOW CEFDINIR IN COMBINATION WITH DOXYCYCLINE HAS BEEN ORDERED ADD ACIDOPHILUS GET SPUTUM CULTURES SOME HYPOXEMIA NOTED TODAY DURING A SYNCOPAL EVENTS WILL ADD OXYGEN THERAPY.? MAINTAIN O2 SATURATION>88 % AT ALL TIME GET SERIAL ABG IF INDICATED REPEAT CHEST X-RAY WELL IF INDICATED NO PRIOR HISTORY OF COPD/TOBACCO USE NO INDICATION FOR STEROIDS AT THIS TIME HOWEVER WILL ADD DUONEB TREATMENTS MONITOR CLOSELY. NO SIGNIFICANT ABNORMALITY NOTED ON TELEMETRY? WILL CONSIDER ECHOCARDIOGRAM AND ULTRASOUND CAROTID ARTERIES PATIENT IS HYPERTENSIVE AND DOES NOT TAKE ANY HOME MEDICATIONS APART FROM SOME TYPE OF SUPPLEMENT WILL START ON METOPROLOL WILL ALSO ADD NEEDED HYDRALAZINE. CONSIDER OTHER AGENTS INDICATED CLINICALLY. ADDITIONAL MANAGEMENT PER CLINICAL COURSE Time Spent With Patient Critical Care time: I spent a total of [] minutes of critical care time on this patient's care today; this time is exclusive of procedural time.
[2022-01-22 05:14] VITALS: BP 120/42; PULSE 77; RESP 18; TEMP 36.9; O2SAT 94
[2022-01-22 06:21] LABS: Add Manual Diff / Slide Review NO; Basophils Absolute Auto 100 /uL (0-100); Basophils Percent Auto 0.6 % (0-2); Eosinophils Absolute Auto 500 /uL (0-450); Eosinophils Percent Auto 4.5 % (2-4); Hematocrit 34.3 % (36-46); Hemoglobin 11.6 g/dL (12.0-16.0); Lymphocytes Absolute Auto 1800 /uL (1100-4500); Lymphocytes Percent Auto 16.7 % (25-40); Mean Corpuscular HGB Conc 33.8 % (30-36); Mean Corpuscular Hemoglobin 31.8 PG (26-34); Mean Corpuscular Volume 93.9 fL (80-100); Monocytes Absolute Auto 600 /uL (0-900); Neutrophils Absolute Auto 7600 /uL (1500-7000); Neutrophils Percent Auto 72.2 % (50-75); Platelet Count 397 X10^3/uL (150-400); Red Blood Cell Count 3.66 X10^6/uL (4.0-5.2); Red Cell Distribution Width 12.5 % (11.6-14.8); White Blood Cell Count 10.6 X10^3/uL (4.5-11.0)
[2022-01-22 06:28] LABS: Alanine Aminotransferase 17 IU/L (<35); Albumin 3.3 g/dL (3.5-5.0); Albumin Globulin Ratio 0.9 (1.0-2.8); Alkaline Phosphatase 84 U/L (38-126); Aspartate Aminotransferase 22 IU/L (14-36); BUN Creatinine Ratio 13.9 (6-22); Bilirubin Total 0.6 mg/dL (0.2-1.3); Blood Urea Nitrogen 11 mg/dL (7-17); Calcium 8.7 mg/dL (8.4-10.2); Carbon Dioxide 33 mmol/L (22-32); Chloride 94 mmol/L (98-107); Estimated Glomerular Filt Rate > 60 mL/min (>60); Globulin 3.7 g/dL (1.7-4.1); Glucose 107 mg/dL (80-110); HEMOLYSIS < 15 (0-50); Magnesium 1.7 mg/dL (1.6-2.3); Phosphorous 3.6 mg/dL (2.8-4.1); Potassium 3.9 mmol/L (3.4-5.1); Sodium 131 mmol/L (137-145)
[2022-01-22 07:41] VITALS: BP 129/78; PULSE 73; RESP 16; TEMP 36.6; O2SAT 97
[2022-01-22] MEDS: LACTOBACILLUS ACIDOPHILUS TABLET 1 EACH PO ×2 (08:44→12:19)
[2022-01-22] MEDS: ENOXAPARIN 40 MG/0.4 ML SYRINGE SUBCUT (08:45)
[2022-01-22] MEDS: DOXYCYCLINE HYCLATE 100 MG TABLET PO (08:45)
[2022-01-22] MEDS: AMLODIPINE 5 MG TABLET PO (08:45)
[2022-01-22] MEDS: CEFDINIR 300 MG CAPSULE PO (08:45)
--- NOTE | 2022-01-22 10:08 | OT.IP.TRT ---
Current Diagnoses Acute respiratory failure, unspecified whether with hypoxia or hypercapnia (01/19/22) Occupational Therapy Treatment Note M2 OT-IP Current Condition Start: 01/21/22 12:50 Freq: Status: Active Protocol: Document 01/21/22 09:47 [facility] (Rec: 01/21/22 13:12 [facility] [id number]) Occupational Therapy Current Condition Current Condition Evaluation Date 01/21/22 Treatment Diagnosis PNA, syncope Diagnosis Onset Date 01/19/22 M3 OT- IP Subjective and Pain Start: 01/21/22 12:50 Freq: Status: Active Protocol: Document 01/22/22 09:40 [facility] (Rec: 01/22/22 10:59 [facility] [id number]) OT- Subjective Occupational Therapy Visit Type Type Treatment Note Visit Start Time 09:40 Visit Stop Time 10:08 Total Visit Minutes 28 Occupational Therapy Visit Comments Patient Comments Pt agreed to get up. Patient/Caregiver Goals pt insisting on going home OT Pain Assessment Pain When Pain Assessed At Rest Pain Present Pain Present Denied Pain M4 OT- IP ADL's Start: 01/21/22 12:50 Freq: Status: Active Protocol: Document 01/21/22 09:47 [facility] (Rec: 01/21/22 13:12 [facility] [id number]) OT ADL-Grooming General Evaluation Grooming Ability Independent Comments OT Grooming Comments Able to do while seated. OT ADL-Oral Care General Eval Oral Care Ability Independent OT ADL-Dressing Comments OT Dressing Comments Pt not wanting to do at this time. OT ADL-Toileting General Evaluation Toileting Ability Standby Assistance Comments OT Toileting Comments Pt able to do her own hygiene needs after set-up. OT ADL-Bathing Comments OT Bathing Comments Not appropriate for a shower due to low BP. M5 OT- IP IADL's Start: 01/21/22 12:50 Freq: Status: Active Protocol: Document 01/21/22 09:47 [facility] (Rec: 01/21/22 13:12 [facility] [id number]) OT-Instrumental Activities of Daily Living Home Safety Awareness Home Safety Comments Pt is a bit confused today and would need assist for all needs due to her safety and low BP. M6 OT- IP Functional Cognition Start: 01/21/22 12:50 Freq: Status: Active Protocol: Document 01/22/22 09:40 [facility] (Rec: 01/22/22 10:59 [facility] [id number]) Cognitive Factors Limiting Selfcare Function Cognitive Ability Level of Alertness Alert,Confusional State Patient Orientation Name,Place,Situation Attention Span Ability Capable of Focused Attention, Capable of Sustained Attention Ability to Follow Commands Able to Follow One Step Commands Memory Description Short Term Impaired Safety Awareness Underestimates Need for Assistance Problem Solving Ability Needs Assist to Identify Solutions Cognitive Comments Cognitive Assessment Comments Pt insisting that she is not dizzy as she was swaying with her balance while standing and having low BP. Pt states that she will be fine at home, even though she lives alone. M7 OT- IP Mobility and Balance Start: 01/21/22 12:50 Freq: Status: Active Protocol: Document 01/22/22 09:40 [facility] (Rec: 01/22/22 10:59 [facility] [id number]) OT- Bed Mobility Assessment Supine to Sit Supine to Sit Assist Standby Assistance Sit to Supine Sit to Supine Assist Standby Assistance Scooting Scooting to Edge of Bed Standby Assistance Scooting Up and Down in Bed Standby Assistance OT-Transfer Assessment Sit to and From Stand Sit to and from Stand Standby Assistance Comments Mobility Comments BP supine with HOB up 126/72, sitting 119/73 , standing 80/ 48, and sitting 97/63 standing 88/38, and back in supine with HOB up 106/54. Pt on RA 91-88% while just standing. O2 on 1L 93-97%. Able to notify nursing and hospitalist of pt' s BP numbers. OT- Balance Assessment Sitting Balance and Reactions Static Sitting Balance Ability Good Dynamic Sitting Balance Ability Good Standing Balance and Reactions Static Standing Balance Ability Fair Comments Other Balance Tests/Deviations/Treatment Pt swaying and eyes flickering while standing but : denies any symptomatic symptoms at this time. M8 OT- IP Objective Assessments Start: 01/21/22 12:50 Freq: Status: Active Protocol: Document 01/21/22 09:47 [facility] (Rec: 01/21/22 13:12 [facility] [id number]) OT Gross Range of Motion Upper Extremity Range of Motion ROM Impairments grossy WFL OT Strength Comments Strength Comments At least 3+/5 throughout OT- Coordination Assessment Upper Extremity Finger to Nose Test Within Functional Limits M9 OT- IP Assessment and Plan Start: 01/21/22 12:50 Freq: Status: Active Protocol: Document 01/22/22 09:40 [facility] (Rec: 01/22/22 10:59 [facility] [id number]) OT Summary Assessment and Plan Potential Rehabilitation Potential Good Analytic Complexity at Evaluation Moderate Summary OT Impairments Strength,Balance,Functional Cognition,Functional Mobility, Grooming,Dressing,Toileting, Bathing,Toilet Transfers, Shower Transfers,Activity Tolerance Progress Towards Goals Slow Progress due to Medical Issues,Slow Progress due to Activity Tolerance,Slow Progress due to Cognition Assessment Summary Pt continues to have low BP and therefore not able to progress past standing at this time. Pt would greatly benefit from skilled rehab to work on her endurance, dynamic balance, and independence with ADl need and especially with safety for use of O2. Pt insistent on going home and also does not have anyone to stay with her at home. Goals Self-Feeding Goal Independent Grooming Goal Independent Dressing Goal Independent Toileting Goal Independent Bathing Goal Independent Toilet Transfer Goal Independent Shower Transfer Goal Independent Days to Meet Goals 20 Frequency of Treatment Frequency Of Treatment Once a Day Treatment Plan OT Treatment Plan ADL Training,Functional Cognition Training,Functional Mobility,Patient/Family Education,Discharge Planning Other Treatment Recommendations and Next SLUMS Treatment Focus Discharge Recommendations OT Discharge Recommendations SNF Rehab Home Equipment Needs FWW/4WW Transportation Needs at Discharge Wheelchair/Cabulance
--- NOTE | 2022-01-22 11:12 | PT.IPTN ---
Current Diagnoses Acute respiratory failure, unspecified whether with hypoxia or hypercapnia (01/19/22) Physical Therapy Treatment Note M2 PT-IP Current Condition Start: 01/20/22 16:39 Freq: NEEDED Status: Active Protocol: Document 01/20/22 14:50 [facility] (Rec: 01/20/22 17:08 [facility] [id number]) Physical Therapy Current Condition Current Condition Evaluation Date 01/20/22 Treatment Diagnosis PNA; difficulty in walking Onset Date 01/19/22 M3 PT-IP Subjective Start: 01/20/22 16:39 Freq: NEEDED Status: Active Protocol: Document 01/22/22 10:48 [facility] (Rec: 01/22/22 12:47 [facility] [id number]) Subjective Physical Therapy Visit Type Type Treatment Note Visit Start Time 10:48 Visit Stop Time 11:12 Total Visit Minutes 24 Number of CEREAL MILLER Visits 2 Physical Therapy Visit Comments Patient Comments agreeable to do PT M4 PT-IP Mobility and Gait Start: 01/20/22 16:39 Freq: NEEDED Status: Active Protocol: Document 01/22/22 10:48 [facility] (Rec: 01/22/22 12:47 [facility] [id number]) PT-Bed Mobility Assessment Supine to Sit Supine to Sit Standby Assistance Sit to Supine Sit to Supine Standby Assistance Scooting Scooting to Edge of Bed Standby Assistance PT-Transfer Assessment Sit to and From Stand Sit to and from Stand Contact Guard Assistance,Use of Upper Extremities Equipment Transfer Assistive Device Gait Belt,Front Wheeled Walker Orthotic/Prosthetic Devices or Brace: No Transfers Transfer Destination Bed Transfer Technique sit<>stand Transfer Ability Level of Assist Contact Guard Assistance Comments Mobility Comments Pt in bed upon arrival from therapy and agreeable to mobilize. Pt SBA for sup<>sit. BP sup: 127/74 and standing 111/61. Pt stated she felt off when standing and stated she felt she was not getting enough oxygen, however O2 sat 93-94% on 1L. Pt took seated rest break and then stood again and performed marching in place for ~30 seconds. Pt then performed seated exercises including ankle pumps, LAQs, and seated marching before requesting to lay down. Discussed SNF due to decreased activity tolerance and pt agreeable. Gait Assessment Comments Gait Comments Marching in place CGA w/ FWW only. PT-Balance Assessment Sitting Balance and Reactions Static Sitting Balance Ability Good Dynamic Sitting Balance Ability Good Standing Balance and Reactions Static Standing Balance Ability Fair Dynamic Standing Balance Ability Fair Device Used FWW M5 PT-IP Objective Assessments Start: 01/20/22 16:39 Freq: NEEDED Status: Active Protocol: Document 01/20/22 14:50 [facility] (Rec: 01/20/22 17:08 [facility] [id number]) Orientation Orientation/Cognition Level of Alertness Alert Orientation Name,Place,Situation Language Function Ability No Deficits Noted Safety Awareness Decreased Safety Awareness Memory Description No Deficits Noted Gross Range of Motion Lower Extremity ROM Assessment Within Functional Limits Strength Lower Extremity Strength Hip 4-/5 Knee 4-/5 Sensation Assessment Sensation Gross Sensation WNL Muscle Tone Muscle Tone WNL Yes M6 PT-IP Treatment Start: 01/20/22 16:39 Freq: NEEDED Status: Active Protocol: Document 01/22/22 10:48 [facility] (Rec: 01/22/22 12:47 [facility] [id number]) Physical Therapy Treatment Exercises Exercises Ankle Pumps Education Education Provided Safety Other Treatments Other Treatment Performed LAQs, seated and standing marching M7 PT-IP Assessment and Plan Start: 01/20/22 16:39 Freq: NEEDED Status: Active Protocol: Document 01/22/22 10:48 [facility] (Rec: 01/22/22 12:47 [facility] [id number]) PT Summary Assessment and Plan Potential Rehabilitation Potential Fair Status of Condition at Evaluation Evolving Summary Impairments Pain,ROM,Strength,Balance, Coordination,Sensation,Tone, Cognition,Bed Mobility, Transfers,Gait,Activity Tolerance Assessment Summary Pt continues to have BP drop w / positional changes and reports feeling off and low on oxygen. Limited by pts low tolerance for activity and low BP. Able to perform minimal exercises but pt limited by low tolerance for activity. Pt high fall risk and would benefit from SNF to improve safety and mobility independence as she is not at her baseline LOF. Goals Bed Mobility Goal Independent Transfer Goal Independent,Cane Gait Goal Independent,Cane Gait Distance 200 Other Goals ambulation without AD 250 ft SBA Days to Meet Goals 10 Frequency of Treatment Frequency Of Treatment Once a Day Treatment Plan Physical Therapy Treatment Plan Bed Mobility Training,Transfer Training,Gait Training, Therapeutic Exercise,Balance Retraining,Discharge Planning, Hot or Cold Pack,Neuromuscular Re-ed,Coordination Retraining Precautions Other Precautions syncope; O2 sat Recommendations To Nursing Amount of Assist Needed 1 Person Assist Discharge Recommendations PT Discharge Recommendations Home with 27/03 Assist Available,Home Health,SNF Rehab Transportation Needs at Discharge Private Vehicle,Wheelchair/ Cabulance
[2022-01-22 12:00] VITALS: BP 114/59; PULSE 83; RESP 16; TEMP 36.8; O2SAT 92
[2022-01-22] MEDS: ONDANSETRON 4 MG/2 ML INJ IV (13:28)
--- NOTE | 2022-01-22 14:22 | P.DS_ITS ---
History of Present Illness History of Present Illness Date Patient Seen: 01/22/22 Chief complaint: pneumonia 2 weeks ago, still feeling bad Narrative: History of Present Illness History of Present Illness Date Patient Seen: 01/19/22 Time Patient Seen: 22:30 Chief complaint: pneumonia 2 weeks ago, still feeling bad Narrative: Ms. Richards is a 76W woth PMH HTN who presents with cough and shortness of breath. She states she has had pneumonia frequently in the past. She states she initially started feeling bad three months ago. She was not clear what symptoms she had. For the last few weeks she has been having worsening cough (non- productive), shortness of breath, and subjective fevers. She is also fatigued and dizzy and has no appetite. She has never smoked, she does not have any known cardiac and pulmonary history. She lives a hermetic life and does not have known mold or animals in the house. No recent travel In the ED workup was done, vitals notable for temp 98.4, blood pressure 170s/80s. Labs notable for WBC 11.8, plts 448. creatinine 0.8. BNP 174. COVID negative. Trop negative. Chest xray showed bilateral patchy airspace opacity. She was ordered for IV ceftriaxone and azithromycin and admitted for further treatment. Family history: Father with CAD Social history: never smoker Discharge Providers Provider Date of admission: 01/19/22 18:26 Discharge Date: 01/22/22 Primary care physician: Radha Jimenez PA-C Consults: 01/20/22 13:15 Consult to Occupational Therapy Evaluate & Treat Comment: Physician Instructions: Evaluate and treat Consult to Physical Therapy Evaluate & Treat Comment: Physician Instructions: Evaluate and Treat 01/22/22 13:59 Consult to Home Health Routine Comment: Reason For Exam: Home health upon DC Discharge provider: Terese Noble, Summary Hospital Course Discharge Diagnosis: COMMUNITY-ACQUIRED PNEUMONIA.? LIKELY GRAM-POSITIVE COCCI.? DC ON ANTIBIOTICS ACUTE HYPOXIC RESPIRATORY FAILURE SECONDARY TO ABOVE.? IMPROVED LEUKOCYTOSIS.? RESOLVED.? CONTINUE DAILY CBC SYNCOPE.? MICTURITION SUSPECTED.? MONITOR CLOSELY ON TELE.? ECHO NEGATIVE CAROTID ULTRASOUND NEGATIVE POSSIBLE ANEMIA CHRONIC DISEASE POSSIBLE HYPERTENSIVE URGENCY.? RESOLVED THROMBOCYTOSIS.? COULD BE REACTIVE HYPONATREMIA.? MILD.? COULD BE MILD SIADH POSSIBLE PHYSICAL DECONDITIONING.? DISCHARGE WITH PHYSICAL THERAPY /HOME HEALTH HYPERLIPIDEMIA PER HISTORY Hospital Course: THIS IS A VERY PLEASANT 76-YEAR-OLD FEMALE WHO WAS ADMITTED TO THE HOSPITAL DUE TO PERSISTENT PNEUMONIA. SHE WAS TREATED OUTPATIENT WITHOUT SIGNIFICANT IMPROVEMENT. SHE WAS TREATED WITH IV ANTIBIOTICS HERE AT [facility] AND SUBSEQUENTLY CHANGED TO ORAL TABLET. SHE HAS BEEN SHOWING SIGNIFICANT IMPROVED BUT ON OMNICEF AND DOXYCYCLINE COMBO. SHE WILL BE DISCHARGED WITH THOSE ANTIBIOTICS FOR ANOTHER DAYS FOLLOWING DISCHARGE. ALSO WILL BE DISCHARGED WITH LACTOBACILLUS TO DECREASE THE RISK OF C DIFF COLITIS WHILE ON ANTIBIOTIC THERAPY. PATIENT INSTRUCTED TO EAT PLENTY OF YOGURT WHILE ON ANTIBIOTICS TO DECREASE THE RISK OF TO ABDOMINAL INFECTION PATIENT HAD A SYNCOPAL EPISODE DURING THIS HOSPITAL STAY WELL. THIS OCCURRED WHILE PATIENT WAS USING THE BATHROOM. WORKUP WAS NEGATIVE. ECHOCARDIOGRAM AND CAROTID ULTRASOUND WERE ORDERED. THERE HAS BEEN NO RECURRENCE OF THE EVENT. SHE DID HAVE SOME INSTANCE OF HYPOTENSION. SHE WAS STARTED ON ANTIHYPERTENSIVE MEDS HERE AT THE HOSPITAL HOWEVER WE HAD TO STOP THE THERAPY DUE TO PERSISTENT ORTHOSTATIC HYPOTENSION. HER BLOOD PRESSURE HAS IMPROVED OVER THE LAST 24 HOURS ONCE PER BP MED HAD BEEN STOPPED. SHE STATED THAT SHE USED EARLY TAKES A SUPPLEMENT AT HOME TO HELP WITH HER BLOOD PRESSURE. THIS MIGHT BE THE BEST THING AT THIS TIME DUE TO THE EFFECT NOTED HERE IN THE HOSPITAL FROM BLOOD PRESSURE MEDICATIONS GIVEN OCCUPATIONAL THERAPY DID RECOMMEND PATIENT TO GO TO RETIREMENT FACILITY HOWEVER PATIENT DECLINED AT THIS TIME. ALSO PATIENT WAS EVALUATED BY RESPIRATORY THERAPY. SHE DID QUALIFY FOR HOME OXYGEN. SHE WILL BE DISCHARGED ON OXYGEN TO BE USE AT 1-2 L PER NASAL CANNULA DURING EXERTION. IN ANY CASE, SHE APPEARS TO BE AT BASELINE AT THIS TIME. SHE WILL BE DISCHARGED TO HOME. ADDITIONAL MANAGEMENT WILL BE DEFERRED TO OUTPATIENT PROVID ERS INSTRUCTION ACTIVITIES TOLERATED. MAINTAIN FALL PRECAUTION AT ALL TIMES CARDIAC DIET FOLLOW-UP WITH PRIMARY CARE PHYSICIAN WITHIN 1-2 WEEKS CHANGE POSITION FROM SITTING TO STANDING VERY SLOWLY USE AN ASSISTIVE DEVICE TO AMBULATE WHENEVER POSSIBLE. Status at Discharge Cognitive/behavioral status at discharge: oriented Functional status at discharge: uses cane/walker Overall status at discharge: patient is progressing back to baseline Time Spent with Patient Time spent: Greater than 30 minutes Exam Vital Signs (past 8 hours): - 01/22/22 07:41 01/22/22 12:00 Temperature 98 F 98.3 F Pulse Rate 73 83 Respiratory Rate 16 16 Blood Pressure 129/78 114/59 L Pulse Oximetry 97 92 Oxygen Delivery Method Nasal Cannula Oxygen Flow Rate 1 Const Other: NO ACUTE DISTRESS.? PATIENT IS ALERT ORIENTED X3. HEAD ATRAUMATIC NORMOCEPHALIC NECK : SUPPLE WITHOUT ADENOPATHY NO CAROTID BRUITS EYE:? EOMI, PERRLA, NORMAL CONJUNCTIVA; NO JAUNDICE CHEST:? REGULAR RATE.? ? NO RUBS.? PMI IS NON DISPLACED.? NO MURMURS; NORMAL S1- S2 PULMONARY:? DECREASED BS OVER THE BASES.? MILD BIBASILAR CRACKLES NOTED; NO INCREASED DULLNESS TO PERCUSSION NO WHEEZING.? NO RALES.? NO RHONCHI. ABDOMEN:? OBESE BUT SOFT.? NONTENDER.? NONDISTENDED.? BOWEL SOUNDS ARE PRESENT IN ALL 4 QUADRANTS.? NO PALPATING MASS. EXTREMITIES:? 1+ NONPITTING BILATERAL LOWER EXTREMITY EDEMA..? NO CYANOSIS CLUBBING NOTED.? SENSATION INTACT DISTALLY NEURO:? CRANIAL NERVES 2-12 GROSSLY INTACT. NO FOCAL NEUROLOGICAL DEFICIT NOTED. MSK:? NORMAL RANGE OF MOTION FOR AGE.? NO JOINT EFFUSION. SKIN:? NORMAL FOR ETHNICITY; NO ECCHYMOSIS.? NO LESION. ? GOOD? TURGOR.; NO RASHES :? NORMAL EXTERNAL GENITALIA. PSYCH :? APPROPRIATE MOOD AND AFFECT.? ALERT AWAKE ORIENTED X3 Objective Labs Result Diagrams: 01/22/22 06:05 01/22/22 06:05 Labs: Laboratory Results - last 24 hr 01/22/22 01/22/22 06:05 06:05 WBC 10.6 RBC 3.66 L Hgb 11.6 L Hct 34.3 L MCV 93.9 MCH 31.8 MCHC 33.8 RDW 12.5 Plt Count 397 Neut % (Auto) 72.2 Lymph % (Auto) 16.7 L [place] % (Auto) 6.0 Eos % (Auto) 4.5 H Baso % (Auto) 0.6 Neut # (Auto) 7600 H Lymph # (Auto) 1800 [place] # (Auto) 600 Eos # (Auto) 500 H Baso # (Auto) 100 Sodium 131 L Potassium 3.9 Chloride 94 L Carbon Dioxide 33 H BUN 11 Creatinine 0.79 Estimated GFR > 60 BUN/Creatinine Ratio 13.9 Glucose 107 Calcium 8.7 Phosphorus 3.6 Magnesium 1.7 Total Bilirubin 0.6 AST 22 ALT 17 Alkaline Phosphatase 84 Total Protein 7.0 Albumin 3.3 L Globulin 3.7 Albumin/Globulin Ratio 0.9 L [facility] Medical History Hypertension Surgical History History of carpal tunnel repair Social History household members: none Smoking Status: Never smoker second hand exposure: No (I was exposed with I was younger, but not since I was 36.) alcohol intake: never substance use type: does not use Discharge Plan Discharge Plan Patient Disposition: Home Health Service Discharge orders & Medications Prescriptions: New cefdinir 300 mg Capsule 300 mg PO BID Qty: 10 0RF doxycycline hyclate 100 mg Tablet 100 mg PO BID Qty: 10 0RF Bacid 1 billion cell- 250 mg Tablet 1 ea PO TIDWM Qty: 120 0RF hydralazine 10 mg tablet 10 mg PO TID PRN (Reason: SBP>170) Qty: 30 0RF Continued aspirin 81 MG tablet,delayed release (DR/EC) 81 mg PO QDAY Qty: 0 0RF doxepin 10 mg capsule 10 mg PO HSP PRN (Reason: sleep) Qty: 30 6RF Label Comments: sleeping well 10 hours a night, has it on hand in case has poor sleep. Carditone 200 mg bottle 200 mg PO DAILY 0RF Label Comments: known as magnesium aspartate Rx Instructions: take 1 200mg tablet by mouth once a day Follow up/Referrals: Radha Jimenez PA-C [Primary Care Provider] - Diet/Activity/Treatments Activity: TOLERATED; FALL PRECAUTIONS Visit Report/Discharge Packet Instructions: DI for Prescription Opioid Use Discharge Data Primary Care Provider: Radha Jimenez
--- NOTE | 2022-01-22 15:19 | CM.DPNOTE ---
DCP Note According to hospitalist and therapy team, patient would benefit from SNF and agreeable. Met w/patient to confirm and she states if the doctor is recommending than I will go across the street Sent referral to [facility] (no SNF b/u choices as patient will not go anywhere else). Never heard back from Amberly Patient then calls this FIBER TECHNICIAN into room to update that she will be going home w/a friend and agreeable to , requests [facility], okay with other agency if boni cannot f/u w/in 48-72 hrs Placed call to [facility]; Flor [facility]ji boni explains RN/PT not available in [place] until January 31. Faxed referral to [facility], availability in [place] 24-48 hrs. [facility] brochure left for patient, MIKE Amador updated Plan: DC home w/friend with [facility], close outpatient f/u recommended JW
--- NOTE | 2022-01-22 15:43 | PT-IP ANOTE ---
nurse informed PT that pt needs a FWW to use at home. Pt plans to go home today. processed FWW and papers. Pt signed papers.
--- NOTE | 2022-01-22 17:14 | PC.NURSE ---
Pt's friend arrived, both given instructions and d/c paperwork. Home meds returned to Pt, belongings gathered and checked. Pt snet home on O2 and with a walker per orders. Pt escorted to Car via w/c By Perry MCKENO. Pt tolerated activity well.
== END 2022-01-22 17:00 | disposition home health service (06) | DRG 193 ==
LOC: ED 15:08 → AC 18:27
PROVIDERS: Internal Medicine; Admitting Provider Hospitalist; Emergency Provider Physician Assistant; Family Provider Physician Assistant; PCP Student in an Organized Health Care Education/Training Program; Referring Provider Physician Assistant; Visit Provider Hospitalist
DX: J15.9 Unspecified bacterial pneumonia (principal); J96.01 Acute respiratory failure with hypoxia; E87.1 Hypo-osmolality and hyponatremia; R55 Syncope and collapse; I10 Essential (primary) hypertension; I95.1 Orthostatic hypotension; I16.0 Hypertensive urgency; Z20.822 Contact with and (suspected) exposure to COVID-19; Z77.22 Contact with and (suspected) exposure to environmental tobacco smoke (acute) (chronic)
CPT/HCPCS: 36415; 71045; 71250; 80048; 80053; 82550; 83735; 83880; 84100; 84145; 84484; 85025; 87040; 87635; 93005; 93010; 93880; 94618; 94640; 94760; 96365; 96366; 97110; 97162; 97166; 97530; 99284; 99285; C9803; C8929; J0696; J1650; J1940; J2405; Q9957

== ENCOUNTER → 2022-02-01 15:30 | Outpatient (CLI) | payer MEDICARE, OTHER, SELFPAY ==
[2022-01-19 21:01] VITALS: BMI 29.2
--- NOTE | 2022-02-01 15:34 | DI.RAD.S_ITS ---
PROCEDURE: XR CHEST 2V INDICATIONS: Cough SOB TECHNIQUE: 2 views of the chest were acquired. COMPARISON: [facility], CT, CT CHEST WO CON, 01/20/2022, 8:06. [facility], CR, CHEST 2 VIEW, 10/20/2017, 19:31. [facility], CR, XR CHEST 1V, 01/19/2022, 14:56. [facility], CR, XR CHEST 1V, 01/19/2022, 15:53. FINDINGS: Surgical changes and devices: None. Lungs and pleura: Bilateral lung course interstitial prominence and patchy consolidation not significantly changed compared to January 19, 2022. No pleural effusions or pneumothorax. Mediastinum: Mediastinal contours are normal. Heart size is normal. Bones and chest wall: No suspicious bony abnormalities. Soft tissues appear unremarkable. IMPRESSION: Persistent bilateral coarse interstitial prominence and patchy areas of consolidation concerning for multifocal atypical pneumonia, pulmonary edema or combination of pneumonia and edema. Dictated by: Jennifer Johnston MD, PhD on 02/01/2022 at 15:57 Approved by: Jennifer Johnston MD, PhD on 02/01/2022 at 16:00
== END ==
PROVIDERS: PCP Student in an Organized Health Care Education/Training Program; Referring Provider Student in an Organized Health Care Education/Training Program; Visit Provider Student in an Organized Health Care Education/Training Program
DX: R05.9 Cough, unspecified (principal); R06.02 Shortness of breath
CPT/HCPCS: 71046

== ENCOUNTER 2023-02-02 09:08 | Day surgery (SDC) | payer OTHER, SELFPAY ==
[2022-01-19 21:01] VITALS: BMI 29.2
[2023-02-02 09:52] VITALS: BP 178/86; PULSE 71; RESP 17; TEMP 36.2; O2SAT 96; BMI 24.7
[2023-02-02] MEDS: LACTATED RINGERS 1,000 ML 100 ML IV (10:08)
--- NOTE | 2023-02-02 10:56 | PM.HP.1 ---
History of Present Illness History of Present Illness Date Patient Seen: 02/02/23 Time Patient Seen: 10:56 Chief complaint: Dx Colonoscopy w/poss bx Narrative: Bere is a 77-year-old woman who is here for colonoscopy. She had one about 20 years ago. No known family history of colon cancer. No recent changes to her health. [facility] Medical History (Updated 02/02/23 @ 10:57 by James North MD) Hypercholesteremia Hypertension Surgical History (Updated 02/02/23 @ 09:52 by Yusuf Brown RN) H/O cataract extraction History of carpal tunnel repair Social History household members: none Smoking Status: Never smoker second hand exposure: No (I was exposed with I was younger, but not since I was 36.) alcohol intake: never substance use type: does not use Meds Home Medications and Allergies Home Medications Medication Instructions Recorded Confirmed Type doxepin 10 mg capsule 10 mg PO HSP PRN sleep #30 caps 09/23/19 01/19/22 Rx Carditone 200 mg PO DAILY 01/20/22 01/20/22 History L.acidophilus-L.bulgar-B.bifid-S.thermoph 1 ea PO TIDWM #120 tabs 01/22/22 Rx 1 billion cell-250 mg tablet (Bacid) cefdinir 300 mg capsule 300 mg PO BID #10 caps 01/22/22 Rx hydralazine 10 mg tablet 10 mg PO TID PRN SBP>170 #30 tabs 01/22/22 02/02/23 Rx Allergies Allergy/AdvReac Type Severity Reaction Status Date / Time shellfish derived Allergy Severe I SWELL Verified 01/19/22 15:14 UP ibuprofen [From MOTRIN] AdvReac Severe MAKED ME Verified 08/11/21 13:23 GO BLIND AND INCREASED MY BLOOD PRESSURE pseudoephedrine AdvReac Severe REALLY Verified 08/11/21 13:23 [From SUDAFED] DRIES ME OUT THAT I CAN'T EVEN PEE Exam Vital Signs (past 8 hours): - 02/02/23 09:52 Temperature 97.1 F L Pulse Rate 71 Respiratory Rate 17 Blood Pressure 178/86 H Pulse Oximetry 96 Oxygen Delivery Method Room Air Oxygen Delivery Method Room Air Const General: No acute distress Resp Effort & Inspection: normal respiratory effort Assessment & Plan Assessment and plan (1) Colon cancer screening: Status: Acute Plan 77-year-old woman who is here for colonoscopy for colon cancer screening. We reviewed the risks and benefits and she would like to proceed.
--- NOTE | 2023-02-02 11:29 | PM.OP.COLON ---
Operative Date/Time/Diagnoses Date of procedure: 02/02/23 Time of procedure: 11:29 Pre-op diagnosis: Colon cancer screening Post-op diagnosis: same Procedure & Clinicians Study performed: Colonoscopy Same procedure as scheduled: Yes Surgeon: James North Procedure Notes Procedure in detail: Surgeon: James North MD Anesthesia: Gutierrez Kitchen CRNA Procedure: The patient was brought to the endoscopy suite, placed in left lateral decubitus position. The patient was connected to monitoring devices. A time-out was performed. Sedation was administered. Once the patient was adequately sedated, a digital rectal exam was performed and was normal. The scope was then inserted and advanced to the cecum where the appendiceal orifice was identified and photographed. The scope was then slowly withdrawn over greater than 6 minutes. The mucosa was thoroughly inspected. No polyps were found. There was scattered diverticulosis in the sigmoid colon. The scope was retroflexed in the rectum. No other abnormalities were noted. The scope was straightened and removed. The patient was awakened and brought to recovery. Scope withdrawal time: 8 minutes Sedation time: 19 minutes EBL: 0 Findings: Scattered sigmoid diverticulosis Post-procedure Disposition: PACU
[2023-02-02 11:33] VITALS: BP 133/78; PULSE 64; RESP 16; TEMP 35.9; O2SAT 98
[2023-02-02 11:38] VITALS: BP 122/78; PULSE 63; RESP 16; O2SAT 99
[2023-02-02 11:47] VITALS: BP 163/91; PULSE 69; RESP 16; TEMP 36.2; O2SAT 98
[2023-02-02 11:52] VITALS: BP 166/67; PULSE 58; RESP 16; TEMP 36.8; O2SAT 98
[2023-02-02 11:55] VITALS: BP 133/78; PULSE 67; RESP 16; TEMP 36.8; O2SAT 98
== END 2023-02-02 12:10 | disposition home or self-care (01) ==
PROVIDERS: PCP Student in an Organized Health Care Education/Training Program; Referring Provider Surgery; Visit Provider Surgery
PROC: 0DJD8ZZ Inspection of Lower Intestinal Tract, Via Natural or Artificial Opening Endoscopic (ICD-10-PCS; CPT 45378; principal; 2023-02-02 10:15)
DX: Z12.11 Encounter for screening for malignant neoplasm of colon (principal); K57.30 Diverticulosis of large intestine without perforation or abscess without bleeding
CPT/HCPCS: G0121; J2704

== ENCOUNTER → 2023-12-28 10:16 | Outpatient (CLI) | payer OTHER, SELFPAY ==
[2022-01-19 21:01] VITALS: BMI 29.2
--- NOTE | 2023-12-28 10:17 | DI.US.S_ITS ---
PROCEDURE: US CAROTID DOPPLER BI INDICATIONS: MIXED HYPERLIPIDEMIA / SCREENING FOR STENOSIS TECHNIQUE: Color and pulse Doppler interrogation was performed of both carotid systems, with image documentation and velocity measurements. COMPARISON: [facility], , CAROTID DOPPLER BI, 01/20/2022, 13:48. FINDINGS: Stenosis calculations are based on SRU (Society of Radiologists in Ultrasound) criteria. Right side: Brachial blood pressure: 215 mm Hg. Common carotid artery peak systolic velocity: 56 cm/sec. Internal carotid artery peak systolic velocity: 78 cm/sec. Internal carotid artery end diastolic velocity: 30 cm/sec. External carotid artery peak systolic velocity: 38 cm/sec. ICA/CCA peak systolic ratio: 1.4 . Sandoval scale imaging description: No significant atherosclerotic plaque Percent internal carotid artery stenosis: Normal. Vertebral artery: Flow direction is antegrade. Left side: Brachial blood pressure: 198 mm Hg. Common carotid artery peak systolic velocity: 46 cm/sec. Internal carotid artery peak systolic velocity: 107 cm/sec. Internal carotid artery end diastolic velocity: 30 set cm/sec. External carotid artery peak systolic velocity: 43 cm/sec. ICA/CCA peak systolic ratio: 1.6 . Sandoval scale imaging description: No significant atherosclerotic plaque Percent internal carotid artery stenosis: Normal . Vertebral artery: Flow direction is antegrade. IMPRESSION: 1. Normal bilateral internal carotid arteries with no hemodynamically significant stenosis. 2. Greater than 10 mm Hg difference in the bilateral brachial pressures which may be seen in the setting of a subclavian artery stenosis. Bilateral vertebral artery flow direction is antegrade. 3. Elevated systolic blood pressure of 215 mmHg. Dictated by: Kilo Montes De Oca M.D. on 12/29/2023 at 17:22 Approved by: Kilo Montes De Oca M.D. on 12/29/2023 at 17:24
--- NOTE | 2023-12-28 11:07 | PC.NURSE ---
Pt blood pressure checked found to be 148/100, made pt aware to watch blood pressure and seek medical attention for HTN
== END ==
PROVIDERS: PCP Student in an Organized Health Care Education/Training Program; Referring Provider Student in an Organized Health Care Education/Training Program; Visit Provider Student in an Organized Health Care Education/Training Program
DX: E78.2 Mixed hyperlipidemia (principal)
CPT/HCPCS: 93880

== ENCOUNTER → 2024-07-19 11:08 | Outpatient (CLI) | payer OTHER, SELFPAY ==
[2022-01-19 21:01] VITALS: BMI 29.2
[2024-07-19 12:44] LABS: Add Manual Diff / Slide Review NO; Basophils Absolute Auto 100 /uL (0-100); Basophils Percent Auto 0.9 % (0-2); Eosinophils Absolute Auto 400 /uL (0-450); Eosinophils Percent Auto 5.3 % (2-4); Hematocrit 43.1 % (36-46); Hemoglobin 14.8 g/dL (12.0-16.0); Lymphocytes Absolute Auto 1600 /uL (1100-4500); Lymphocytes Percent Auto 24.1 % (25-40); Mean Corpuscular HGB Conc 34.4 % (30-36); Mean Corpuscular Volume 95.8 fL (80-100); Monocytes Absolute Auto 500 /uL (0-900); Monocytes Percent Auto 7.1 % (3-14); Neutrophils Absolute Auto 4200 /uL (1500-7000); Neutrophils Percent Auto 62.6 % (50-75); Platelet Count 233 X10^3/uL (150-400); Red Cell Distribution Width 13.5 % (11.6-14.8); White Blood Cell Count 6.7 X10^3/uL (4.5-11.0)
[2024-07-19 13:48] LABS: Alanine Aminotransferase 16 IU/L (<35); Albumin 4.5 g/dL (3.5-5.0); Albumin Globulin Ratio 1.6 (1.0-2.8); Alkaline Phosphatase 93 U/L (38-126); Aspartate Aminotransferase 32 IU/L (14-36); BUN Creatinine Ratio 19.1 (6-22); Bilirubin Total 0.7 mg/dL (0.2-1.3); Blood Urea Nitrogen 17 mg/dL (7-17); Calcium 9.6 mg/dL (8.4-10.2); Carbon Dioxide 29 mmol/L (22-32); Chloride 100 mmol/L (98-107); Cholesterol 292 mg/dL (140-199); Estimated Glomerular Filt Rate > 60 mL/min (>60); Globulin 2.8 g/dL (1.7-4.1); Glucose 81 mg/dL (80-110); HDL Cholesterol 87 mg/dL (40-60); HEMOLYSIS < 15 (0-50); LDL Cholesterol Calculated 192 mg/dL (<100); Potassium 3.8 mmol/L (3.4-5.1); Sodium 137 mmol/L (137-145); Total Protein 7.3 g/dL (6.3-8.2); Triglycerides 67 mg/dL (35-150)
[2024-07-19 14:01] LABS: TSH w/ Reflex to FT4 3.11 uIU/mL (0.47-4.68)
== END ==
LOC: LAB 11:09
PROVIDERS: PCP Family Medicine; Referring Provider Family Medicine; Visit Provider Family Medicine
DX: Z00.00 Encounter for general adult medical examination without abnormal findings (principal); E78.5 Hyperlipidemia, unspecified; I10 Essential (primary) hypertension; Z68.25 Body mass index [BMI] 25.0-25.9, adult; Z76.89 Persons encountering health services in other specified circumstances
CPT/HCPCS: 36415; 80053; 80061; 84443; 85025

== ENCOUNTER 2024-09-06 14:45 | Emergency (ER) | payer OTHER, SELFPAY ==
[2022-01-19 21:01] VITALS: BMI 29.2
[2024-09-06] VITALS (11 sets, daily range): BP systolic 127–161; BP diastolic 64–80; PULSE 69–86; RESP 16–20; TEMP 37; O2SAT 94–97; BMI 26.1
--- NOTE | 2024-09-06 14:56 | DI.CT.S_ITS ---
PROCEDURE: CT HEAD/BRAIN WO CON INDICATIONS: syncope TECHNIQUE: Noncontrast 4.5 mm thick angled axial sections acquired from the foramen magnum to the vertex, with coronal and sagittal reformats. For radiation dose reduction, the following was used: automated exposure control, adjustment of mA and/or kV according to patient size. COMPARISON: None. FINDINGS: Image quality: Diagnostic. CSF spaces: Basal cisterns are patent. No extra-axial fluid collections. The ventricles are symmetric in size and shape. Brain: No intracranial bleeds or masses. There is cerebral volume loss for age, with resultant ventricular and sulcal prominence. There are periventricular and deep white matter chronic small vessel ischemic changes. There is intracranial internal carotid artery atherosclerosis. Skull and face: Calvarium and visualized facial bones appear intact, without suspicious lesions. Sinuses: Visualized sinuses and mastoids are clear. IMPRESSION: Age related microvascular atherosclerotic change in the deep white matter of each hemisphere but no acute disease. No trauma from syncopal episode found. Dictated by: Toni Mcnamara M.D. on 09/06/2024 at 15:46 Approved by: Toni Mcnamara M.D. on 09/06/2024 at 15:47
--- NOTE | 2024-09-06 14:59 | EKG_ITS ---
[address] [address] Test Date: 2024-09-06 Pat Name: Bere Richards Department: Room: Gender: Female Cpr Instructor: YAMINI : 1945 Requested By: Order Number: [id number] Reading MD: Howie Abarca Measurements Intervals [place] Rate: 82 P: 22 [place]: 186 QRS: -21 QRSD: 86 T: 27 QT: 396 QTc: 462 Interpretive Statements Sinus rhythm with occasional premature ventricular complexes Minimal voltage criteria for LVH, may be normal variant ( Doyle product ) Inferior infarct , age undetermined Anterior infarct , age undetermined Electronically Signed On 09-06-2024 18:22:37 PST by Howie Abarca
[2024-09-06 15:15] LABS: Add Manual Diff / Slide Review NO; Basophils Absolute Auto 0 /uL (0-100); Basophils Percent Auto 0.6 % (0-2); Eosinophils Absolute Auto 100 /uL (0-450); Eosinophils Percent Auto 1.7 % (2-4); Hematocrit 42.9 % (36-46); Hemoglobin 14.6 g/dL (12.0-16.0); Lymphocytes Absolute Auto 2400 /uL (1100-4500); Mean Corpuscular HGB Conc 34.1 % (30-36); Mean Corpuscular Hemoglobin 33.5 PG (26-34); Mean Corpuscular Volume 98.3 fL (80-100); Monocytes Absolute Auto 500 /uL (0-900); Monocytes Percent Auto 8.1 % (3-14); Neutrophils Absolute Auto 3200 /uL (1500-7000); Neutrophils Percent Auto 51.6 % (50-75); Platelet Count 225 X10^3/uL (150-400); Red Blood Cell Count 4.37 X10^6/uL (4.0-5.2); Red Cell Distribution Width 12.9 % (11.6-14.8); White Blood Cell Count 6.3 X10^3/uL (4.5-11.0)
[2024-09-06 15:24] LABS: Alanine Aminotransferase 19 IU/L (<35); Albumin 4.5 g/dL (3.5-5.0); Albumin Globulin Ratio 1.6 (1.0-2.8); Alkaline Phosphatase 74 U/L (38-126); Aspartate Aminotransferase 30 IU/L (14-36); BUN Creatinine Ratio 22.1 (6-22); Bilirubin Total 0.6 mg/dL (0.2-1.3); Blood Urea Nitrogen 23 mg/dL (7-17); Calcium 9.2 mg/dL (8.4-10.2); Carbon Dioxide 25 mmol/L (22-32); Chloride 104 mmol/L (98-107); Estimated Glomerular Filt Rate 55 mL/min (>60); Ethanol (ETOH) < 10 mg/dL; Globulin 2.9 g/dL (1.7-4.1); Glucose 111 mg/dL (80-110); HEMOLYSIS < 15 (0-50); Lipase 125 U/L (23-300); Potassium 3.9 mmol/L (3.4-5.1); Sodium 137 mmol/L (137-145); Total Protein 7.4 g/dL (6.3-8.2)
--- NOTE | 2024-09-06 16:36 | ED.GENADULT ---
HPI - General Adult General Chief complaint: Syncope Stated complaint: Syncope,Fall hit head Time Seen by Provider: 09/06/24 14:55 Source: patient and EMS Mode of arrival: EMS History of Present Illness HPI narrative: Patient was a 78-year-old female who was standing in line at a local restaurant where she states she felt like she was getting somewhat lightheaded. No chest pain. No palpitations. No shortness of breath. No headache. She did have what appears to be a syncopal episode. She stated that she has passed out in the past. She reports no injury from passing out. She currently feels asymptomatic. No change in medications recently. She thinks it was because she did not have much to drink this morning prior to the event. Related Data Home Medications Medication Instructions Recorded Confirmed triamcinolone acetonide 0.1 % 1 applic topical DAILY 07/18/24 07/31/24 topical ointment Previous Rx's Medication Instructions Recorded doxepin 10 mg capsule 10 mg PO HSP PRN sleep #30 caps 09/23/19 L.acidophilus-L.bulgar-B.bifid-S.thermoph 1 ea PO TIDWM #120 tabs 01/22/22 1 billion cell-250 mg tablet (Bacid) hydralazine 10 mg tablet 10 mg PO TID PRN SBP>170 #30 tabs 01/22/22 losartan 50 mg tablet 50 mg PO DAILY #60 tabs 07/31/24 rosuvastatin 5 mg tablet 5 mg PO DAILY #30 tabs 07/31/24 Allergies Allergy/AdvReac Type Severity Reaction Status Date / Time shellfish derived Allergy Severe I SWELL Verified 07/31/24 09:46 UP ibuprofen [From MOTRIN] AdvReac Severe MAKED ME Verified 07/31/24 09:46 GO BLIND AND INCREASED MY BLOOD PRESSURE pseudoephedrine AdvReac Severe REALLY Verified 07/31/24 09:46 [From SUDAFED] DRIES ME OUT THAT I CAN'T EVEN PEE Review of Systems Review of Systems ROS Unobtainable: All systems reviewed & are unremarkable except as noted in HPI and below Patient History Medical History Mumps Measles Chicken pox Dysfunction of eustachian tube Insomnia Urinary incontinence (~2019) Osteoarthritis (06/22/17) Spinal stenosis of cervical region (01/06/11) 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) Osteopenia (11/24/04) L1 vertebral fracture Oxygen desaturation Pneumonia Hypercholesteremia Hypertension Surgical History (Updated 08/12/24 @ 20:38 by Kristen Griggs) Anesthesia H/O cataract extraction History of carpal tunnel repair Family History (Updated 08/12/24 @ 20:39 by Kristen Griggs) Father Cerebral hemorrhage Mother History of heart disease Brother Diabetes mellitus Hyperlipidemia Hypertension Social History household members: none Smoking Status: Never smoker second hand exposure: No (I was exposed with I was younger, but not since I was 36.) alcohol intake: never substance use type: does not use Smoking Status: Never smoker Exam Initial Vital Signs Initial Vital Signs: Vital Signs Pulse Oximetry 96 09/06/24 14:54 Const General: cooperative, comfortable and No ill appearing HENMT Head: normal to inspection and normocephalic Resp Effort & Inspection: normal respiratory effort Auscultation: clear to auscultation bilaterally Cardio Rate: regular rate Rhythm: regular rhythm GI Inspection: normal to inspection and non-distended Skin General: no rashes or lesions noted Neuro General: patient alert, patient awake, patient oriented x3 and moves all extremities Extrem General: normal to inspection Course Orders Ordered: ED Orders 09/06/24 14:56 CT head/brain wo con Stat EKG-12 Lead Stat 09/06/24 15:00 Complete Blood Count AUTO DIFF Stat Comprehensive Metabolic Panel Stat Ethanol (ETOH) Stat Lipase Stat Vital Signs Vital signs: Vital Signs - 8 hr 09/06/24 14:54 09/06/24 14:55 09/06/24 14:55 Temperature Pulse Rate 86 Respiratory Rate Blood Pressure 149/79 H Pulse Oximetry 96 95 Oxygen Delivery Method 09/06/24 14:56 09/06/24 15:00 09/06/24 15:00 Temperature 98.6 F Pulse Rate 74 76 Respiratory Rate 18 Blood Pressure 149/79 H 144/74 H Pulse Oximetry 95 97 Oxygen Delivery Method Room Air Room Air 09/06/24 15:32 09/06/24 15:34 09/06/24 15:34 Temperature Pulse Rate 74 77 Respiratory Rate Blood Pressure 147/74 H Pulse Oximetry 95 Oxygen Delivery Method 09/06/24 16:00 09/06/24 16:00 09/06/24 16:30 Temperature Pulse Rate 69 Respiratory Rate Blood Pressure 132/65 127/64 Pulse Oximetry 95 Oxygen Delivery Method 09/06/24 16:30 Temperature Pulse Rate 72 Respiratory Rate Blood Pressure Pulse Oximetry 95 Oxygen Delivery Method Medical Decision Making Lab Data Lab results reviewed: Yes I reviewed the patient's lab results. 09/06/24 15:00 09/06/24 15:00 Labs: Lab Results 09/06/24 Range/Units 15:00 WBC 6.3 (4.5-11.0) X10^3/uL RBC 4.37 (4.0-5.2) X10^6/uL Hgb 14.6 (12.0-16.0) g/dL Hct 42.9 (36-46) % MCV 98.3 (80-100) fL MCH 33.5 (26-34) PG MCHC 34.1 (30-36) % RDW 12.9 (11.6-14.8) % Plt Count 225 (150-400) X10^3/uL Neut % (Auto) 51.6 (50-75) % Lymph % (Auto) 38.0 (25-40) % Patrick % (Auto) 8.1 (3-14) % Eos % (Auto) 1.7 L (2-4) % Baso % (Auto) 0.6 (0-2) % Neut # (Auto) 3200 (4387-5177) /uL Lymph # (Auto) 2400 (7323-9997) /uL Patrick # (Auto) 500 (0-900) /uL Eos # (Auto) 100 (0-450) /uL Baso # (Auto) 0 (0-100) /uL Sodium 137 (137-145) mmol/L Potassium 3.9 (3.4-5.1) mmol/L Chloride 104 (98-107) mmol/L Carbon Dioxide 25 (22-32) mmol/L BUN 23 H (7-17) mg/dL Creatinine 1.04 (0.52-1.04) mg/dL Estimated GFR 55 L (>60) mL/min BUN/Creatinine Ratio 22.1 H (6-22) Glucose 111 H (80-110) mg/dL Calcium 9.2 (8.4-10.2) mg/dL Total Bilirubin 0.6 (0.2-1.3) mg/dL AST 30 (14-36) IU/L ALT 19 (<35) IU/L Alkaline Phosphatase 74 (38-126) U/L Total Protein 7.4 (6.3-8.2) g/dL Albumin 4.5 (3.5-5.0) g/dL Globulin 2.9 (1.7-4.1) g/dL Albumin/Globulin Ratio 1.6 (1.0-2.8) Lipase 125 (23-300) U/L Ethyl Alcohol < 10 ( - 10) mg/dL Point of Care Testing Glucose POC 112 Point of care testing: Point of Care Testing Glucose POC [address] scan - head: Radiologist's Impression: PROCEDURE: CT HEAD/BRAIN WO CON INDICATIONS: syncope TECHNIQUE: Noncontrast 4.5 mm thick angled axial sections acquired from the foramen magnum to the vertex, with coronal and sagittal reformats. For radiation dose reduction, the following was used: automated exposure control, adjustment of mA and/or kV according to patient size. COMPARISON: None. FINDINGS: Image quality: Diagnostic. CSF spaces: Basal cisterns are patent. No extra-axial fluid collections. The ventricles are symmetric in size and shape. Brain: No intracranial bleeds or masses. There is cerebral volume loss for age, with resultant ventricular and sulcal prominence. There are periventricular and deep white matter chronic small vessel ischemic changes. There is intracranial internal carotid artery atherosclerosis. Skull and face: Calvarium and visualized facial bones appear intact, without suspicious lesions. Sinuses: Visualized sinuses and mastoids are clear. IMPRESSION: Age related microvascular atherosclerotic change in the deep white matter of each hemisphere but no acute disease. No trauma from syncopal episode found. ECG Data Attestation: I personally reviewed and interpreted this ECG as follows: Interpretation: Sinus rhythm Ventricular rate of 82 Occasional PVC Normal QRS LVH No ST T wave changes MDM Narrative Medical decision making narrative: Patient was now asymptomatic. Head CT is unremarkable. Labs unremarkable. EKG unremarkable. She has passed out in the past. She has been evaluated for her syncopal episodes. No indication for admission to the hospital. Recommended that she contact her primary care doctor for a follow-up. She expressed understanding and agreement with plan. Discharge Plan Departure Patient Disposition: Home Clinical Impression: Syncope Instructions: DI for Syncope in Adults (Fainting) Activity Restrictions/Additional Instructions: Recommend that you continue to take all of your medications as directed. I do recommend that you contact your primary care doctor for a follow-up. Return to the emergency department for new or worsening symptoms. Prescriptions: No Action doxepin 10 mg capsule 10 mg PO HSP PRN (Reason: sleep) Qty: 30 6RF Patient Comments: sleeping well 10 hours a night, has it on hand in case has poor sleep. triamcinolone acetonide 0.1 % ointment 1 applic topical DAILY rosuvastatin 5 mg tablet 5 mg PO DAILY Qty: 30 0RF losartan 50 mg tablet 50 mg PO DAILY Qty: 60 3RF Bacid 1 billion cell- 250 mg Tablet 1 ea PO TIDWM Qty: 120 0RF hydralazine 10 mg tablet 10 mg PO TID PRN (Reason: SBP>170) Qty: 30 0RF Referrals: Flor Cotto DO [Primary Care Provider] - Stand Alone Forms: Patient Portal/API/Survey
== END 2024-09-06 17:32 | disposition home or self-care (01) ==
PROVIDERS: Emergency Provider Emergency Medicine; PCP Family Medicine
DX: R55 Syncope and collapse (principal)
CPT/HCPCS: 36415; 70450; 80053; 80320; 82962; 83690; 85025; 93005; 99283; 99284

== ENCOUNTER → 2025-07-21 08:02 | Outpatient (CLI) | payer MEDICARE, OTHER, SELFPAY ==
[2022-01-19 21:01] VITALS: BMI 29.2
[2025-07-21 08:31] LABS: Add Manual Diff / Slide Review NO; Hematocrit 42.9 % (36-46); Hemoglobin 14.7 g/dL (12.0-16.0); Lymphocytes Absolute Auto 2700 /uL (1100-4500); Mean Corpuscular HGB Conc 34.3 % (30-36); Mean Corpuscular Hemoglobin 33.4 PG (26-34); Mean Corpuscular Volume 97.5 fL (80-100); Platelet Count 240 X10^3/uL (150-400)
[2025-07-21 08:45] LABS: Alanine Aminotransferase 17 IU/L (<35); Albumin 4.7 g/dL (3.5-5.0); Albumin Globulin Ratio 1.6 (1.0-2.8); Alkaline Phosphatase 86 U/L (38-126); Blood Urea Nitrogen 18 mg/dL (7-17); Calcium 9.5 mg/dL (8.4-10.2); Carbon Dioxide 26 mmol/L (22-32); Chloride 101 mmol/L (98-107); Cholesterol 269 mg/dL (140-199); Estimated Glomerular Filt Rate > 60 mL/min (>60); Globulin 2.9 g/dL (1.7-4.1); Glucose 91 mg/dL (70-99); HDL Cholesterol 81 mg/dL (40-60); HEMOLYSIS 18 (0-50); Potassium 4.3 mmol/L (3.4-5.1); Sodium 136 mmol/L (137-145); Total Protein 7.6 g/dL (6.3-8.2); Triglycerides 68 mg/dL (35-150)
== END ==
PROVIDERS: PCP Family Medicine; Referring Provider Family Medicine; Visit Provider Family Medicine
DX: I10 Essential (primary) hypertension (principal); E78.5 Hyperlipidemia, unspecified
CPT/HCPCS: 36415; 80053; 80061; 85025

== ENCOUNTER → 2025-08-06 08:59 | Outpatient (CLI) | payer MEDICARE, OTHER, SELFPAY ==
[2022-01-19 21:01] VITALS: BMI 29.2
[2025-08-06 09:58] LABS: Blood Urea Nitrogen 19 mg/dL (7-17); Calcium 9.5 mg/dL (8.4-10.2); Carbon Dioxide 28 mmol/L (22-32); Chloride 103 mmol/L (98-107); Estimated Glomerular Filt Rate 59 mL/min (>60); Glucose 92 mg/dL (70-99); HEMOLYSIS < 15 (0-50); Potassium 4.7 mmol/L (3.4-5.1); Sodium 139 mmol/L (137-145)
== END ==
PROVIDERS: PCP Family Medicine; Referring Provider Family Medicine; Visit Provider Family Medicine
DX: M19.90 Unspecified osteoarthritis, unspecified site (principal); I10 Essential (primary) hypertension
CPT/HCPCS: 36415; 80048